=== PATIENT | female | born 1930 | race Caucasian/White ===

== ENCOUNTER 2016-10-28 16:49 | Emergency (ER) | payer MEDICARE ==
[~2016-10-28 16:49] MED LIST: ATENOLOL25 MG PO; ATIVAN PO; DILT-XR120 MG PO; ESCITALOPRAM OX10 MG PO; PRADAXA150 M1 PO; TEMAZEPAM7.5 MG PO; TIROSINT88 MCG PO; TRAZODONE HCL50 MG PO; TYLENOL ARTHRI650 MG PO; VITAMIN PO; XARELTO20 MG PO; ZOLPIDEM TARTRAT5 MG PO
--- NOTE | 2016-10-28 17:32 | DIAGNOSTIC IMAGING REPORT ---
PROCEDURE: CT HEAD WITHOUT CONTRAST INDICATION: Left weakness. TECHNIQUE: Noncontrast axial images with sagittal and coronal reformations. COMPARISON: Compared to a head CT studies on 01/25/2016 and 01/24/2016. FINDINGS: Status post left supraclinoid aneurysm coiling (metal artifact obscures some detail). 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 Brain and ventricles are otherwise normal. No evidence of an acute process or hemorrhage. There is a millimeter exostosis along the inner table of the left frontal bone (no change). There are small left maxillary sinus chronic retention cyst. Sinus and mastoids are otherwise normal. IMPRESSION: 1. Status post left supraclinoid aneurysm coiling (metal artifact). 2. Associated encephalomalacia of the left frontal lobe. 3. No change. No evidence of acute process head CT. 4. Findings discussed with Dr. Parag Van at [address] scans at this facility use dose modulation, iterative reconstruction, and/or weight-based dosing when appropriate to reduce radiation dose to as low as reasonably achievable.
--- NOTE | 2016-10-28 21:10 | DIAGNOSTIC IMAGING REPORT ---
PROCEDURE: CTA HEAD AND NECK INDICATION: Left weakness. TECHNIQUE: 168 ml of Isovue 370 injected intravenously and axial images were obtained from the vertex through the upper mediastinum with 3D sagittal and coronal MIP reconstructions. COMPARISON: Comparison is made to noncontrast head CT earlier today (10/28/2016). FINDINGS: AORTIC ARCH: Moderate calcified atheromatous changes aorta arch and origins of the great vessels without significant stenosis RIGHT CAROTID SYSTEM: Right common carotid artery is within normal limits. Mild calcified atheromatous changes of the right carotid bifurcation, no evidence of significant stenosis. Cervical right internal coronary is a markedly tortuous. LEFT CAROTID SYSTEM: Left common coronary is within normal limits. There are mild calcified atheromatous changes of the left bifurcation with mild narrowing of the origin of the left external carotid artery (30%). VERTEBROBASILAR SYSTEM: The origin of the vertebral arteries are markedly tortuous. The right vertebral artery is dominant and tortuous, but no evidence of significant stenosis. There is an 80% stenosis of the proximal left vertebral artery which is also tortuous. INTRACRANIAL ANTERIOR CIRCULATION: Right distal internal carotid artery, middle cerebral arteries, and intracerebral artery are normal. Left distal internal carotid artery is normal. There are aneurysm coils in the left supraclinoid region which obscures some of the with partial residual filling of the aneurysm. There appears be a small stent in the distal loss internal carotid artery which obscures some of the detail. Left middle and anterior cerebral arteries are normal. INTRACRANIAL POSTERIOR CIRCULATION: There is a dominant right and nondominant left vertebral arteries. There is 40% narrowing of the mid basilar artery with a 60% stenosis of the distal basilar artery. Distal basilar artery and posterior cerebral arteries are normal. IMPRESSION: Extracranial circulation: 1. Mild atheromatous plaque of the right common carotid artery bifurcation with tortuous distal right internal carotid artery. 2. Mild atheromatous plaque of the left common carotid artery bifurcation with 30% stenosis of the left external carotid artery. 3. There is an 80% stenosis in the origin of nondominant origin left vertebral artery. Intracranial circulation: 1. Normal right anterior circulation. 2. There are aneurysm coils in the left supraclinoid internal carotid artery with a small distal internal carotid stent with probable partial filling of aneurysm. 3. Otherwise normal left anterior circulation. 4. There is a 40% stenosis of the mid basilar artery with a 60% stenosis of the distal basilar artery. 5. Otherwise normal posterior circulation. All CT scans at this facility use dose modulation, iterative reconstruction, and/or weight-based dosing when appropriate to reduce radiation dose to as low as reasonably achievable.
--- NOTE | 2016-10-28 22:27 | ED ORDER SUMMARY ---
..... Patient: EDISON PINON OrderSheet [facility] VisitID: [id number] [place] [address] 86y, F Registration Date/Time: 10/28/2016 ORDER SHEET Weight: 78.4 kg (stated) Allergies: Codeine, Darvocet, Tape, Vytorin, Zocor GENERAL ORDERS: CT Head wo Cont Urgent (17:08 10/28/2016 Odette Martin) (Ack 17:16 LTapper) (17:22 Yecenia) Stroke Panel Stat (17:08 10/28/2016 Odette Martin) (Ack 17:16 LTapper) (17:57 Moriah Alvarado) CTA Head and Neck (No) (19/1.0) Urgent (18:41 10/28/2016 Odette Martin) (Ack 18:46 LTapper) (18:46 Odette aMrtin) (Cancelled: Physician Order18:47 Odette Martin) CTA Head and Neck (No) (19/1.0) Urgent (19:32 10/28/2016 AMcQuoid ER Tech1 verbal order read back to Odette Martin) (Ack 19:34 AMcQuoid ER Tech1) (20:04 Chino Hernandez.NAnnie) MEDICATION ORDERS: IV FLUIDS: ORDER SHEET NOTES: [Electronically signed by Hossein Campos R.N. (22:57 10/28/2016)] [Electronically signed by Parag Van Dr. (23:13 10/28/2016)] [Electronically locked/signed by Hossein Campos R.N. (22:57 10/28/2016)]
--- NOTE | 2016-10-28 22:27 | ED ORDER SUMMARY ---
..... Patient: EDISON PINON OrderSheet [facility] VisitID: [id number] [place] [address] 86y, F Registration Date/Time: 10/28/2016 ORDER SHEET Weight: 78.4 kg (stated) Allergies: Codeine, Darvocet, Tape, Vytorin, Zocor GENERAL ORDERS: CT Head wo Cont Urgent (17:08 10/28/2016 Odette Mratin) (Ack 17:16 LTapper) (17:22 Yecenia) Stroke Panel Stat (17:08 10/28/2016 Odette Martin) (Ack 17:16 LTapper) (17:57 Moriah Alvarado) CTA Head and Neck (No) (19/1.0) Urgent (18:41 10/28/2016 Odette Martin) (Ack 18:46 LTapper) (18:46 Odette Martin) (Cancelled: Physician Order18:47 Odette Martin) CTA Head and Neck (No) (19/1.0) Urgent (19:32 10/28/2016 AMcQuoid ER Tech1 verbal order read back to Odette Martin) (Ack 19:34 AMcQuoid ER Tech1) (20:04 Chino Hernandez.NAnnie) MEDICATION ORDERS: IV FLUIDS: ORDER SHEET NOTES: [Electronically signed by Hossein Campos R.N. (22:57 10/28/2016)] [Electronically signed by Parag Van Dr. (23:13 10/28/2016)] [Electronically locked/signed by Hossein Campos R.N. (22:57 10/28/2016)]
--- NOTE | 2016-10-28 22:27 | ED NURSING NOTES ---
Clinical Report - Nurses [place] [address] [place] [address] 10/28/2016 16:50 Patient: EDISON PINON TRIAGE Triage time 1649 PM. Chief Complaint: FALL while standing. Alert. No acute distress. --16:50 Hossein Campos R.N. 16:49 10/28/16. BP: 166/90. HR: 102. RR: 16. O2 saturation: 96% on room air. --16:50 Hossein Campos R.N. Alert. No acute distress. AUTUMN COMA SCORE: [place] Coma Scale: 15- eyes open spontaneously (4); best verbal response- oriented x 4 (5); best motor response- obeys commands (6). --16:51 Hossein Campos R.N. 16:50 10/28/16. BP: 169/104 taken on the right arm, while lying. --16:51 Hossein Campos R.N. 16:51 10/28/16. Temp: 97.8 F (oral). --16:52 Hossein Campos R.N. Weight: 78.4 kg stated. Height/Length: 63 inches Per Patient. BMI: 30.6. --17:14 Hossein Campos R.N. Medications Escitalopram Oxalate Oral 20 mg, daily. Metoprolol Tartrate Oral 25 mg. Nitrofurantoin Oral 100 mg. Tobramycin Ophthalmic. --16:52 Hossein Campos R.N. Sertraline HCl Oral. --16:53 Hossein Campos R.N. Pradaxa Oral. --17:01 Hossein Campos R.N. The following entry was struck by Hossein Campos R.N., 17:00 (10/28/16) Reason - wrong value. <<STRICKEN ENTRY-- Xarelto Oral. --16:52 Hossein Campos R.N. --END STRIKE>>. Allergies Codeine. Darvocet. Tape. Vytorin. Zocor. --16:52 Hossein Campos R.N. History This occurred just prior to arrival. --16:50 Hossein Campos R.N. The patient has had left leg pain (numbness). Treatment MEDICAL MANAGEMENT SPECIALIST: None. Trauma activation: Pre-hospital notification of patient arrival was received. --16:52 Hossein Campos R.N. PAST MEDICAL HX: Hypertension. Heart disease. Stroke. --16:54 Hossein Campos R.N. ( Patient presents to the ED with symptoms of a ground level fall and numbness to the left leg and arm. Patient states that she was trying to get off the couch. Patient's daughter tried to get patient up with her walker, but was unable to walk because of weakness/numbness in her left leg. Patient states that the numbness/weakness is new. Patient states that also was recently discharged from [facility] with similar symptoms +double vision/hypertension. Patient states that she has a hx of afib and has not been on her pradaxa for 1 week because [facility] wanted her PCP to monitor the pradaxa.). PAST MEDICAL HX: Hypertension. Heart disease. Stroke. SOCIAL HX: Never smoker. Alcohol use. (no). History of drug use. (no). No infectious disease exposure. FALL RISK ASSESSMENT: Fall risk assessment completed. Risk factors identified include patient age greater than 65 years, history of fall and impairment of mobility and sight. Fall interventions initiated. Side rails up x2. Brakes on Bed in low position. Patient visible from nurses' station and identified as a fall risk by ID band. Family at bedside. Call light in reach of patient. Instructed not to get up without assistance. --17:12 Hossein Campos R.N. NUTRITIONAL RISK ASSESSMENT: The nutritional risk assessment revealed no deficiencies. FUNCTIONAL ASSESSMENT: Functional assessment: no impairments noted. LEARNING NEEDS ASSESSMENT: The learning needs assessment revealed no barriers. SKIN INTEGRITY ASSESSMENT: Skin integrity risk assessment completed. No skin integrity risk identified. --17:13 Hossein Campos R.N. PROBLEMS: TIA - Transient Ischemic Attack. Hypothyroidism. Essential Hypertension. Hyperlipidemia. Vertigo. Sleep Apnea. Dyspnea. Chronic pancreatitis. C. Difficile Colitis. Agoraphobia. Hypertension. Hiatal Hernia. Pulmonary Nodule. LNMP - Last Normal Menstrual Period. Chest Pain. Diarrhea. UTI - Urinary Tract Infection. Hypokalemia. Hypotension. Depression. Atrial Fibrillation. Abdominal aortic aneurysm. --16:53 Hossein Campos R.N. ADDITIONAL SURGERIES: Appendectomy. Back Surgery. Brain surg, for aneurysm. Eeyes w/implants . Hysterectomy. --16:53 Hossein Campos R.N. PHYSICAL ASSESSMENT To room via stretcher. GENERAL / NEURO / PSYCH: Awake. Oriented X 4. Alert. Speech normal. Mood/affect normal. NIH Stroke Scale: score 5. Performed at 16:57 and 1656 PM. Level of Consciousness: alert (0). LOC Questions: both (0). LOC Commands: both (0). Best gaze: normal (0). Visual field loss: none (0). Facial palsy: minor (1). Motor arm: no drift right arm (0) and no drift left arm (0). Motor leg: no drift right leg (0) and drift left leg (1). Limb ataxia: one limb (1). Sensory loss: severe to total (2). Aphasia: none (0). Dysarthria: normal (0). Extinction and inattention: none (0). HEENT: Left-sided facial weakness. Pupils equal, round and reactive to light. Head non-tender. RESPIRATORY: Respirations not labored. Chest nontender. Breath sounds within normal limits. CVS: Normal heart rate and rhythm. Pulses within normal limits. Capillary refill less than 2 seconds. GI / : Abdomen soft and nontender. EXTREMITIES: Extremities exhibit normal ROM. Neuro-vascular status intact to the extremity. SKIN: Skin intact. Skin is warm and dry. --16:57 Hossein Campos R.N. EXTREMITIES: Left forearm. Left wrist. Left thigh. Left leg. --17:15 Hossein Campos R.N. GENERAL / NEURO / PSYCH: Alert. Oriented X 4 and 4. Awake. Alert. Appears in no acute distress. Speech normal. Mood/affect normal. No cerebellar findings. Moves all extremities equally. No motor deficit. No sensory deficit. NIH Stroke Scale: score 2. Level of Consciousness: alert (0). LOC Questions: both (0). LOC Commands: both (0). Best gaze: normal (0). Visual field loss: none (0). Facial palsy: normal (0). Motor arm: no drift right arm (0) and no drift left arm (0). Motor leg: no drift right leg (0) and drift left leg (1). Limb ataxia: none (0). Sensory loss: mild to moderate (1). Aphasia: none (0). Dysarthria: normal (0). Extinction and inattention: none (0). --21:18 Hossein Campos R.N. GENERAL / NEURO / PSYCH: NIH Stroke Scale: score 0. Level of Consciousness: alert (0). LOC Questions: both (0). LOC Commands: both (0). Best gaze: normal (0). Visual field loss: none (0). Facial palsy: normal (0). Motor arm: no drift right arm (0) and no drift left arm (0). Motor leg: no drift right leg (0) and no drift left leg (0). Limb ataxia: none (0). Sensory loss: none (0). Aphasia: none (0). Dysarthria: normal (0). Extinction and inattention: none (0). --22:16 Hossein Campos R.N. NURSING PROGRESS NOTES 17:03 10/28/2016 Site #1 started via IV in the left antecubital space with an 20g angiocath; one attempt. Blood drawn: rainbow set. Labeled in the presence of the patient and sent to the lab. Saline lock flushed with 10 mL saline. --17:03 Hossein Campos R.N. Patient hygiene performed. Changed patient linens. Assisted patient with bedpan; tolerated well. Patient transported to CT by stretcher with tech. --19:46 Chris Rodriguez R.N. Patient returned from CT by stretcher with tech. (20:07 Oct 28 2016). --20:07 Preethi Patricia ( Assisted patient patient on the bed menendez.). --21:07 Hossein Campos R.NAnnie 20:40 10/28/16. BP: 182/109. HR: 87. RR: 18. O2 saturation: 100%. Pain level now: 0/10. --21:08 Hossein Campos R.NAnnie 20:25 10/28/16. BP: 177/110. HR: 91. RR: 18. O2 saturation: 100%. --21:08 Hossein Campos R.NAnnie 19:55 10/28/16. BP: 187/117. HR: 95. RR: 18. O2 saturation: 100%. --21:09 Hossein Campos R.NAnnie 19:15 10/28/16. BP: 164/104. HR: 91. RR: 18. O2 saturation: 100%. --21:10 Hossein Campos R.N. 18:45 10/28/16. BP: 170/99. HR: 91. RR: 16. O2 saturation: 99%. --21:11 Hossein Campos R.NAnnie 17:40 10/28/16. BP: 166/92. HR: 97. RR: 18. O2 saturation: 96%. --21:12 Hossein Campos R.NAnnie 17:00 10/28/16. BP: 163/112. HR: 91. RR: 18. O2 saturation: 99%. --21:13 Hossein Campos R.N. GENERAL / NEURO / PSYCH: Alert. Oriented X 4. RESPIRATORY: No respiratory distress. CVS: Capillary refill less than 2 seconds. GI / : Abdomen nontender. EXTREMITIES: Neuro-vascular status intact to the extremity. --21:17 Hossein Campos R.N. 21:16 10/28/16. BP: 165/107. HR: 85. RR: 18. O2 saturation: 100%. --21:17 Hossein Campos R.N. ( Provided patient with a turkey sandwich, Jell-O, and a glass of ice water.). --22:05 Hossein Campos R.N. ( Patient ambulates around the emergency department with and even and steady gait with the assistance of a walker. Physician aware.). --22:15 Hossein Campos R.N. The patient reports no complaints and she is calm and resting quietly. Overall patient status is improved. GENERAL / NEURO / PSYCH: Alert. Oriented X 4. RESPIRATORY: No respiratory distress. CVS: Capillary refill less than 2 seconds. GI / : Abdomen nontender. EXTREMITIES: Neuro-vascular status intact to the extremity. --22:16 Hossein Campos R.N. DISPOSITION / DISCHARGE Condition at departure: improved. The goals identified in the patient's plan of care were met. No learning barriers present. Discharge instructions provided and reviewed with the patient. Reviewed medication(s) (Instructed patient to take her prescribed Metoprolol tonight). Patient verbalized understanding. Written instructions provided in Fijian. The patient was discharged home and accompanied by family. She left the Emergency Department ambulatory and via private vehicle. Family member driving. FALL RISK ASSESSMENT: Fall risk assessment completed. No fall risk identified. --22:56 Hossein Campos R.N. 22:55 10/28/16. BP: 184/139. HR: 85. RR: 16. O2 saturation: 100% on room air. Temp: 98.2 F (oral). --22:56 Hossein Campos R.N. 22:56 10/28/2016 Site #1 removed upon discharge. Pressure dressing applied. --22:56 Hossein Campos R.N. Departure time: 2256 PM. --22:56 Hossein Campos R.N. Locked/Released at 10/28/2016 22:57 by Hossein Campos R.N.
--- NOTE | 2016-10-28 22:27 | ED CLINICAL REPORT ---
Clinical Report - Physicians/Mid Levels [facility] [address] [place] [address] 10/28/2016 16:50 [id number] Time Seen: 16:56; initial patient contact. Arrived- By ambulance. Historian- patient and EMS personnel. HISTORY OF PRESENT ILLNESS Chief Complaint: WEAKNESS and PARESTHESIA. The patient has had new onset of constant weakness of the left arm (mild), left hand (mild), left leg (mild) and left foot (mild). She has had new onset of constant numbness of the left arm (moderate), left leg (moderate) and left foot (moderate), (L upper arm/shoulder spared). No tingling or impaired speech. She has had visual disturbance (Ongoing L eye). She has had difficulty walking. She has had a recent fall. This started just prior to arrival, patient was witnessed to be last known well (at 1500) and is still present. It was abrupt in onset. At its maximum deficit described as moderate. When seen in the E.D.,deficit described as moderate. No dizziness, altered mental status, seizure or blackouts. Usually is alert and oriented X3 and has normal mobility. Similar symptoms previously: None. Recent medical care: Not recently seen/assessed. REVIEW OF SYSTEMS All systems otherwise negative, except as recorded above. PAST HISTORY ( TIA - Transient Ischemic Attack. Hypothyroidism. Essential Hypertension. Hyperlipidemia. Vertigo. Sleep Apnea. Dyspnea. Chronic pancreatitis. C. Difficile Colitis. Agoraphobia. Hypertension. Hiatal Hernia. Pulmonary Nodule. LNMP - Last Normal Menstrual Period. Chest Pain. Diarrhea. UTI - Urinary Tract Infection. Hypokalemia. Hypotension. Depression. Atrial Fibrillation. Abdominal aortic aneurysm. ADDITIONAL SURGERIES: Appendectomy. Back Surgery. Brain surg, for aneurysm. Eeyes w/implants . Hysterectomy.). Medications: Sertraline HCl Oral. Escitalopram Oxalate Oral 20 mg, daily. Metoprolol Tartrate Oral 25 mg. Nitrofurantoin Oral 100 mg. Tobramycin Ophthalmic. Allergies: Codeine. Darvocet. Tape. Vytorin. Zocor. SOCIAL HISTORY Never smoker. No alcohol use or drug use. ADDITIONAL NOTES The nursing notes have been reviewed with agreement regarding the chief complaint, PMH and patient medications and allergies. PHYSICAL EXAM Vital Signs: 10/28/2016 16:51 Temp: 97.8 F. 10/28/2016 16:49 BP: 166/90. HR: 102. RR: 16. O2 saturation: 96%. Have been reviewed. Hypertensive. Tachycardic. Respiratory rate normal. Temperature normal. Oxygen saturation normal. Appearance: Alert. No acute distress. Head: Head atraumatic. Eyes: Pupils equal, round and reactive to light. ENT: Normal ENT inspection. Airway intact. Pharynx normal. Neck: Normal inspection. Neck supple. CVS: Abnormal rhythm, which is irregularly irregular. Normal heart rate and rhythm. Heart sounds normal. Respiratory: No respiratory distress. Breath sounds normal. Abdomen: Soft and nontender. No organomegaly. Skin: Skin warm and dry. Normal skin color. Extremities: No lower extremity edema. Neuro: Alert. Oriented X 3. Mood/affect normal. Speech normal. Cranial nerves normal (as tested). Finger-nose test moderately abnormal on the left. No motor deficit. Sensory deficit present. Altered sensation to light touch on the left arm and left leg. Reflexes normal. No pronator drift. LABS, X-RAYS, AND EKG EKG: EKG time: (1708). Atrial fibrillation (ventricular rate 79). Normal QRS complex. Normal axis. Normal ST and T waves, QT and QTc. Prior EKG unavailable. The study has been interpreted contemporaneously by me. The study has been independently viewed by me. The EKG appears to be a good tracing. Interpretation time: 1708. CTA Head: Extracranial circulation: 1. Mild atheromatous plaque of the right common carotid artery bifurcation with tortuous distal right internal carotid artery. 2. Mild atheromatous plaque of the left common carotid artery bifurcation with 30% stenosis of the left external carotid artery. 3. There is an 80% stenosis in the origin of nondominant origin left vertebral artery. Intracranial circulation: 1. Normal right anterior circulation. 2. There are aneurysm coils in the left supraclinoid internal carotid artery with a small distal internal carotid stent with probable partial filling of aneurysm. 3. Otherwise normal left anterior circulation. 4. There is a 40% stenosis of the mid basilar artery with a 60% stenosis of the distal basilar artery. 5. Otherwise normal posterior circulation. Head CTA performed with contrast. Artifact present. The study was interpreted by the radiologist and discussed with the radiologist. Interpretation time: 2108. CT Head: (1. Status post left supraclinoid aneurysm coiling (metal artifact). 2. Associated encephalomalacia of the left frontal lobe. 3. No change. No evidence of acute process head CT.). Head CT performed without contrast. Prior studies were not available for comparison. The study was interpreted by the radiologist and discussed with the radiologist. Interpretation time: 1729. Laboratory Tests: CBC w Diff: (CABRERA: 10/28/2016 17:00) ( [facility] Final results Test Result Flag Units (Reference) WHITE BLOOD COUNT 12.9 H K/uL (4.5-11.5) RED BLOOD COUNT 5.01 M/uL (4.00-5.20) HEMOGLOBIN 14.3 gm/dL (12.0-16.0) HEMATOCRIT 44.8 % (36.0-46.0) MEAN CELL VOLUME 90 fL (80-100) MEAN CORPUSCULAR HGB 29 pg (26-34) MEAN CORPUSCULAR HGB CONC 32 g/dL (31-37) RED CELL DISTRIBUTION WIDTH 15.0 H % (11.6-14.8) PLATELET COUNT 155 K/uL (150-400) LYMPH % 11.7 L % (25-40) MONO % 6.6 % (3-14) GRANULOCYTE % 81.7 (53-90) PT with INR: (CABRERA: 10/28/2016 17:00) ( MsgRcvd 10/28/2016 17:41) Final results Test Result Flag Units (Reference) INR 1.0 (0.8-1.2) Low Intensity Therapy: INR 1.5-2.0 PT range 18.5-23.1Mod.Intensity Therapy: INR 2.0-3.0 PT range 23.1-31.5High Intensity Therapy: INR 2.5-3.5 PT range 27.4-35.5High Intensity Therapy 2: INR 3.0-4.0 PT range 31.5-39.3 APTT 27 SECONDS (24-34) FIBRINOGEN 270 mg/dL (193-455) D-DIMER QUANTITATIVE 12.71 *H ug/mLFEU (0.27-0.52) CRITICAL RESULTS CALLEDCalled to MIGUEL A 10/28/16 1740Were 2 patient identifiers used? YWas the result read back? YThe primary value of this quantitative assay relates toits negative predictive value (i.e. exclusion) of pulmonaryembolism/deep vein thrombosis/DIC.Elevated levels of d-dimer may also occur with:, age, cancer, inflammation, liver disease,post-op, infection, hematoma, coronary disease, peripheralarteriopathy, bleeding disorders and thrombolytic treatment.Results should be correlated with other clinical andradiological data.Testing Methodology: Latex Immunoassay CMP: (CABRERA: 10/28/2016 17:00) ( MsgRcvd 10/28/2016 17:30) Final results Test Result Flag Units (Reference) GLUCOSE 117 H mg/dL (70-110) BUN 19 H mg/dL (7-18) CREATININE 1.0 mg/dL (0.6-1.3) Estimated GFR 55.61 mL/min Estimated GFR- >60 mL/min Note: Persistent reduction over 3 months in eGFR<60 mL/min/1.73 m2 defines CKD. Patients with eGFR values>=60 mL/min/1.73 m2 may also have CKD if evidence ofpersistent proteinuria. Additional information may be foundat www.[email or web address].org. SODIUM 140 mmol/L (136-145) POTASSIUM 3.7 mmol/L (3.5-5.1) CHLORIDE 104 mmol/L (98-107) CARBON DIOXIDE 26 mmol/L (21-32) CALCIUM 8.2 L mg/dL (8.5-10.1) TOTAL PROTEIN 7.5 g/dL (6.4-8.2) ALBUMIN 3.2 L g/dL (3.3-5.0) BILIRUBIN, TOTAL 0.4 mg/dL (0.0-1.0) ALKALINE PHOSPHATASE 78 U/L (46-116) AST (SGOT) 27 U/L (15-37) ALT (SGPT) 26 U/L (12-78) . PROGRESS AND PROCEDURES Call placed to on-call health care provider call returned 22:00 Dr. Samaniego neuro, no new findings on CTA, recommended D/C on ASA and F/U. Consult obtained from neurology. call returned 18:37 Dr. Samaniego @ [facility], recommended CTA of head/neck due to not being able to perform MRI due to aneurysm clip. Disposition: Discharged home in good and improved condition. Condition: good. CLINICAL IMPRESSION Paresthesia Chronic atrial fibrillation. The patient has one or more high risk factors and/or two or more moderate risk factors for thromboembolism. The patient is not prescribed warfarin or another FDA approved anticoagulant because the bleeding risk outweighs the benefits. INSTRUCTIONS Your Current Medications: CONTINUE TAKING THE FOLLOWING MEDICATIONS: Escitalopram Oxalate Oral : 20 mg daily. Metoprolol Tartrate Oral : 25 mg. Nitrofurantoin Oral : 100 mg. Sertraline HCl Oral. Tobramycin Ophthalmic. Follow-up: Follow up with your doctor Saturday as scheduled. Blood pressure screening was not performed during this visit because the patient has an active diagnosis of hypertension. (Electronically signed by Parag Van Dr. 10/28/2016 23:13)
--- NOTE | 2016-10-28 23:14 | ED MAR SUMMARY ---
..... Medication Administration Record [facility] [address] [place], [place] [id number] Patient: EDISON PINON Visit ID: [id number] 86y, F Weight: 78.4 kg Height/Length: 63 in BMI: 30.6 ALLERGIES: Codeine, Darvocet, Tape, Vytorin, Zocor
--- NOTE | 2016-10-28 23:14 | ED MED RECONCILIATION SUMMARY ---
Patient: EDISON PINON Medication Reconciliation Report [facility] VisitID: [id number] [address] [place] [address] 86y, F Registration Date/Time: 10/28/2016 Weight: 78.4 kg Height/Length: 63 in. BMI: 30.6 ALLERGIES: Codeine, Darvocet, Tape, Vytorin, Zocor The patient's Home Medications are listed below: CONTINUE TAKING THE FOLLOWING MEDICATIONS: Escitalopram Oxalate Oral 20 mg, daily Metoprolol Tartrate Oral 25 mg Nitrofurantoin Oral 100 mg Sertraline HCl Oral Tobramycin Ophthalmic The source(s) of the original Home Medication information: Not obtained. The following Medications were given to the patient in the Emergency Department: None. The following Medications were prescribed to the patient: None.
--- NOTE | 2016-10-28 23:14 | ED MED RECONCILIATION SUMMARY ---
Patient: EDISON PINON Medication Reconciliation Report [facility] VisitID: [id number] [address] [place] [address] 86y, F Registration Date/Time: 10/28/2016 Weight: 78.4 kg Height/Length: 63 in. BMI: 30.6 ALLERGIES: Codeine, Darvocet, Tape, Vytorin, Zocor The patient's Home Medications are listed below: CONTINUE TAKING THE FOLLOWING MEDICATIONS: Escitalopram Oxalate Oral 20 mg, daily Metoprolol Tartrate Oral 25 mg Nitrofurantoin Oral 100 mg Sertraline HCl Oral Tobramycin Ophthalmic The source(s) of the original Home Medication information: Not obtained. The following Medications were given to the patient in the Emergency Department: None. The following Medications were prescribed to the patient: None.
--- NOTE | 2016-10-28 23:14 | ED DISCHARGE INSTRUCTIONS ---
Patient: EDISON PINON General Instructions [facility] VisitID: [id number] [place] [address] 86y, F Registration Date/Time: 10/28/2016 Paresthesia Chronic atrial fibrillation. The patient has one or more high risk factors and/or two or more moderate risk factors for thromboembolism. The patient is not prescribed warfarin or another FDA approved anticoagulant because the bleeding risk outweighs the benefits. INSTRUCTIONS Your Current Medications: CONTINUE TAKING THE FOLLOWING MEDICATIONS: Escitalopram Oxalate Oral : 20 mg daily. Metoprolol Tartrate Oral : 25 mg. Nitrofurantoin Oral : 100 mg. Sertraline HCl Oral. Tobramycin Ophthalmic. Follow-up: Follow up with your doctor Saturday as scheduled. Blood pressure screening was not performed during this visit because the patient has an active diagnosis of hypertension. ADDITIONAL INFORMATION Arrhythmia Electrical impulses cause the normal heart to beat 60 to 100 times a minute. These impulses come from a natural pacemaker deep inside the heart muscle. Each impulse causes the heart muscle to contract. This causes the blood to flow through the heart and out to the tissues and organs of your body. An arrhythmia is a change from the normal speed or pattern of these electrical impulses. This can cause the heart to beat too fast (tachycardia); or too slow (bradycardia); or in an unsteady pattern (irregular rhythm). Symptoms of arrhythmias Different people experience arrhythmias differently. Sometimes they may not have symptoms, but just notice a change in their pulse. Symptoms can include: Fluttering feeling in the chest Shortness of breath Chest pain or pressure Lightheadedness or dizziness Fainting or nearly fainting Palpitations Tiredness, fatigue, or weakness Causes of arrhythmias Arrhythmias are most often due to heart disease such as: Coronary artery disease (arteriosclerosis) Disease of the heart valves Enlarged heart High blood pressure Heart failure Other causes ofarrhythmia include: Certain medicines (such as asthma inhalers and decongestants) Some herbal supplements Cardiac stimulant drugs (such as cocaine, amphetamine, diet pills, certain decongestant cold medicines, caffeine, and nicotine) Excessive alcohol use Medical conditions such as thyroid disease, anemia, anxiety, and panic disorder Arrythmias can often be prevented. The cause and type of arrhythmia determines the best treatment. Sometimes your doctor may want to monitor your heart rate over a 24-hour period or longer. This can help identify the cause of your arrhythmia and find the best treatment. This can be done with a Holter monitor,a portable EKG recording device attached by wires to your chest. You can carry this with you as you perform your routine activities during the monitoring period. Home care Avoid cardiac stimulants (such as cocaine, amphetamine, diet pills, certain decongestant cold medicines, caffeine, and nicotine). If you smoke, stop smoking. Contact your doctor or a local stop-smoking program for help. Tell your doctor about any prescription, [id number] or herbal medicines you take. These may be affecting your heart rhythm. Follow-up care Follow up with your health care provider or as advised by our staff. If a Holter monitor has been recommended, contact the cardiologistyou have been referred toas soon as you canpick up the device. Other outpatient tests may also be arranged for you at that time. Call 911 This is the fastest and safest way to get to the emergency department. The paramedics can also start treatment on the way to the hospital, if needed. Don'twait until your symptoms are severe to call 911. Other reasons to call 911 besides chest pain include: Chest, shoulder, arm, neck, or back pain Shortness of breath Feeling lightheaded, faint, or dizzy Rapid heart beat Slower than usual heart rate compared to your normal Angina withweakness, dizziness, fainting, heavy sweating, nausea, or vomiting Extreme drowsiness, or confusion Weakness of an arm or leg or one side of the face Difficulty with speech or vision When to seek medical care Remember, things are not always like they are on TV. Sometimes it is not so obvious. You may only feel weak or just "not right." If it is not clear or if you have any doubt, call for advice. Seek help for chest pain, or it feels different from usual, even if your symptoms are mild. Do not drive yourself. Have someone else drive. If no one can drive you, call 911. If your doctor has given you medicines to take when you have symptoms, take them, but do not delay getting help while trying to find them. Do not delay. Fast diagnosis and treatment can prevent or limit the amount of heart damage during a heart attack or stroke. Do not go to your doctor's ofice or a clinic because they will not be able to provide all of the testing or treatment required for this condition. Paraesthesias Paraesthesia refers to a burning or prickling sensation that is sometimes felt in the hands, arms, legs or feet. It can also occur in other parts of the body. It can also feel like tingling or numbness, skin crawling or itching.The sensation is usually painless. Most people have experienced pins and needles. This feeling happens when legs have been crossed for too long and pressure is placed on a nerve. This is a temporary paraesthesia. It quickly goes away once the pressure is relieved. There are many possible causes for chronic paraesthesias. These include such disorders as stroke, herniated disk (pressing on a nerve), trapped nerve in the shoulder, elbow or wrist (such as carpal tunnel syndrome), vitamin deficiencies or even certain medicines. Laboratory tests are needed to make an accurate diagnosis. These tests may include blood tests, X-ray, CT (computerized tomography) scan or a muscle test (electromyography).Depending on the cause, treatment may include physical therapy. Home Care: Do not make any changes to your medicines without advice from your doctor. If vitamins have been prescribed, remember to take them daily at the recommended dose. Because of a decrease in feeling, a numb hand or foot may be more prone to injury. Take care to protect these areas from cuts, bumps, bruises, coffey or other injury. Keep your nails trimmed and wash your hands and feet often. Wear shoes that fit well to avoid pressure points, blisters and ulcers. Look at your hands and feet carefully (including the soles of your feet and between your toes) at least once a week and notify your doctor of any open wounds or signs of infection. Follow Up with your doctor or as advised by our staff. You may need further testing to determine the exact cause of your paraesthesia. [NOTE: If blood tests, X-ray, CT scan or electromyography were done, specialists will review them. You will be notified of any new findings that may affect your care.] Get Prompt Medical Attention if any of the following occur: Numbness or weakness of the face, one arm or one leg Slurred speech, confusion, trouble speaking, walking or seeing Severe headache, fainting spell, dizziness or seizure Chest, arm, neck or upper back pain Loss of bladder or bowel control Open wound with redness, swelling or pus You have been given the following additional information: Arrhythmia, Unspecified Paraesthesias (Electronically signed by Parag Van Dr. 10/28/2016 23:13)
--- NOTE | 2016-10-28 23:14 | ED MAR SUMMARY ---
..... Medication Administration Record [facility] [address] [place], [place] [id number] Patient: EDISON PINON Visit ID: [id number] 86y, F Weight: 78.4 kg Height/Length: 63 in BMI: 30.6 ALLERGIES: Codeine, Darvocet, Tape, Vytorin, Zocor
== END 2016-10-28 22:56 | disposition home or self-care (01) ==
LOC: ED SRH 16:49
DX: I48.2 Chronic atrial fibrillation (principal); R20.9 Unspecified disturbances of skin sensation; I10 Essential (primary) hypertension; Z86.73 Personal history of transient ischemic attack (TIA), and cerebral infarction without residual deficits; Z79.2 Long term (current) use of antibiotics; Z88.5 Allergy status to narcotic agent; Z91.048 Other nonmedicinal substance allergy status
CPT/HCPCS: 90100; 91556; 94001; 94050; 94060; 95059

== ENCOUNTER 2016-11-12 06:05 | Emergency (ER) | payer MEDICARE ==
--- NOTE | 2016-11-12 07:18 | DIAGNOSTIC IMAGING REPORT ---
PROCEDURE: CT HEAD WITHOUT CONTRAST INDICATION: Fall injury, initial encounter TECHNIQUE: Noncontrast axial images with sagittal and coronal reformations. COMPARISON: None. FINDINGS: Mild cortical atrophy and white matter chronic ischemic changes. Normal ventricular system. Left MCA aneurysm coil. No evidence of acute intracranial process. Left maxillary sinus polyps. Mastoid are clear. IMPRESSION: 1. Negative non-enhanced head CT. 2. Findings discussed with Dr. Van at 07:[address] Time
--- NOTE | 2016-11-12 07:18 | DIAGNOSTIC IMAGING REPORT ---
PROCEDURE: CT HEAD WITHOUT CONTRAST INDICATION: Fall injury, initial encounter TECHNIQUE: Noncontrast axial images with sagittal and coronal reformations. COMPARISON: None. FINDINGS: Mild cortical atrophy and white matter chronic ischemic changes. Normal ventricular system. Left MCA aneurysm coil. No evidence of acute intracranial process. Left maxillary sinus polyps. Mastoid are clear. IMPRESSION: 1. Negative non-enhanced head CT. 2. Findings discussed with Dr. Van at 07:17 a.m.[facility] Time
--- NOTE | 2016-11-12 08:18 | DIAGNOSTIC IMAGING REPORT ---
PROCEDURE: XR CHEST 1 VIEW INDICATION: SHORTNESS OF BREATH, initial encounter TECHNIQUE: Portable AP view 06:53 a.m. COMPARISON: None. FINDINGS: Lungs are clear. Mild to moderate cardiomegaly. Mediastinum and pulmonary vessels are normal. Tortuous aorta. Thorax is normal. IMPRESSION: 1. Mild to moderate cardiomegaly
--- NOTE | 2016-11-12 09:47 | DIAGNOSTIC IMAGING REPORT ---
PROCEDURE: CTA THORAX WITH CONTRAST INDICATION: SHORTNESS OF BREATH, initial encounter TECHNIQUE: 104 ml of Isovue 370 was injected intravenously and axial images were obtained of the entire thorax with 3D sagittal and coronal MIP reconstructions. COMPARISON: Chest x-ray 11/12/2016 FINDINGS: No evidence of pulmonary emboli. Mild atherosclerosis of the thoracic aorta without dissection or aneurysm. Moderate cardiomegaly. Ground- glass appearance in the lung bases which may represent pulmonary edema. Small left pleural effusion. No adenopathy. NG tube in place, moderate hiatal hernia. Moderate degenerative changes of the spine. IMPRESSION: 1. No evidence of pulmonary emboli, aortic dissection or aneurysm 2. Ground-glass appearance of the lung bases which may represent pulmonary edema 3. Cardiomegaly with small left pleural effusion 4. Results discussed with Dr. Van
--- NOTE | 2016-11-12 09:47 | DIAGNOSTIC IMAGING REPORT ---
PROCEDURE: CT ABD/PELVIS WITH CONTRAST CLINICAL INDICATION: ABDOMINAL PAIN, initial encounter TECHNIQUE: 104 ml of Isovue 370 were injected intravenously and axial images were obtained of the entire abdomen and pelvis with sagittal and coronal reformations. COMPARISON: None. FINDINGS: ABDOMEN: 5.6 cm infrarenal abdominal aortic aneurysm with large acute rupture posteriorly and extensive retroperitoneal soft tissue density consistent with hemorrhage. Compression of the IVC and bilateral renal veins. 1.7 cm left hepatic lobe cyst. Cholelithiasis. 3.4 x 4.1 cm multiloculated cystic mass in the body of the pancreas and 2.8 x 3.0 cm multiloculated mass in the tail of the pancreas. Spleen and adrenal glands are unremarkable. Multiple small bilateral renal cysts. NG tube in place. Moderate hiatal hernia. Nonspecific bowel gas pattern. Moderate degenerative changes of the spine. PELVIS: Mild sigmoid diverticulosis. Hysterectomy. Healy catheter in the bladder. No free fluid the cul-de-sac. 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 Small amount of retroperitoneal hemorrhage. No suspicious osseous lesions. IMPRESSION: 1. 5.6 cm infrarenal abdominal aortic leaking aneurysm with large retroperitoneal hemorrhage 2. Secondary compression of the IVC and bilateral renal veins 3. Cholelithiasis 4. 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 Moderate hiatal hernia with NG tube in place 6. Results discussed with Dr. Van All CT scans at this facility use dose modulation, iterative reconstruction, and/or weight-based dosing when appropriate to reduce radiation dose to as low as reasonably achievable.
--- NOTE | 2016-11-12 10:05 | ED CLINICAL REPORT ---
Clinical Report - Physicians/Mid Levels [facility] [address] [place] [address] 11/12/2016 6:06 [id number] Time Seen: 06:17; initial patient contact. Arrived- By ambulance. Historian- EMS personnel. HISTORY OF PRESENT ILLNESS Chief Complaint: FALL. Location of injuries- abdomen. The injury occurred just prior to arrival. Fell while standing and landed on the ground. Occurred at home. The patient complains of moderate pain in the abdomen. REVIEW OF SYSTEMS No chest pain or fever. She has had difficulty breathing, nausea, abdominal pain and vomiting. All systems otherwise negative, except as recorded above. PAST HISTORY ( TIA - Transient Ischemic Attack. Hypothyroidism. Essential Hypertension. Hyperlipidemia. Vertigo. Sleep Apnea. Dyspnea. Chronic pancreatitis. C. Difficile Colitis. Agoraphobia. Hypertension. Hiatal Hernia. Pulmonary Nodule. LNMP - Last Normal Menstrual Period. Chest Pain. Diarrhea. UTI - Urinary Tract Infection. Hypokalemia. Hypotension. Depression. Atrial Fibrillation. Abdominal aortic aneurysm. ADDITIONAL SURGERIES: Appendectomy. Back Surgery. Brain surg, for aneurysm. Eeyes w/implants . Hysterectomy.). Medications: Antidepressant. Synthroid Oral. PredniSONE Oral. TraZODone HCl Oral. Pradaxa Oral. Allergies: Codeine. Darvocet. Ezetimibe. Tape. SOCIAL HISTORY Never smoker. No alcohol use or drug use. ADDITIONAL NOTES The nursing notes have been reviewed with agreement regarding the chief complaint, PMH and patient medications and allergies. PHYSICAL EXAM Vital Signs: 11/12/2016 06:13 Temp: 95.8 F. 11/12/2016 06:07 BP: 103/71. HR: 145. RR: 32. Have been reviewed. Hypotensive. Tachycardic. Tachypneic. Hypothermic. Appearance: C-collar in place. Lethargic. Patient in moderate distress. Head: No swelling of head. No Basilio's sign or raccoon eyes. Eyes: Pupils equal, round and reactive to light. EOM intact. ENT: No dental injury. Neck: No pain with movement of head/neck. No muscle spasm in the neck. Painless ROM. Non-tender. Non-tender. Non-tender. No vertebral tenderness. CVS: Tachycardia. Abnormal rhythm, which is irregularly irregular. Respiratory: Mild respiratory distress with tachypnea. Breath sounds normal. Abdomen: No visible injury. Soft. Moderate tenderness in the left side of the abdomen with guarding present. No rebound tenderness. Abnormal bowel sounds: hyperactive and high pitched. Moderate, pulsatile mass with guarding present in the left abdomen. Skin: Moderately cool skin. No skin rash. Extremities: Extremities atraumatic. Neuro: Altered mental status. Eyes open to voice. Best verbal response: disoriented. Best motor response: obeys commands. LABS, X-RAYS, AND EKG Chest X-ray: (1. Mild to moderate cardiomegaly). Views: AP. Technique: good. The X-rays were independently viewed by me, interpreted by the radiologist and contemporaneously by me and discussed with the radiologist. Prior films were not available for comparison. Chest CT: (1. No evidence of pulmonary emboli, aortic dissection or aneurysm 2. Ground-glass appearance of the lung bases which may represent pulmonary edema 3. Cardiomegaly with small left pleural effusion). Chest CT performed with contrast. Prior studies were not available for comparison. The study was interpreted by the radiologist and discussed with the radiologist. CT Abdomen: 1. 5.6 cm infrarenal abdominal aortic leaking aneurysm with large retroperitoneal hemorrhage 2. Secondary compression of the IVC and bilateral renal veins 3. Cholelithiasis 4. 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 Moderate hiatal hernia with NG tube in place. Study type: upper abdomen; lower abdomen; pelvis. Abdominal CT performed with IV contrast. Prior studies were not available for comparison. The study was interpreted by the radiologist and discussed with the radiologist. Laboratory Tests: CBC w Diff: (CABRERA: 11/12/2016 06:15) ( MsgRcvd 11/12/2016 06:32) Final results Test Result Flag Units (Reference) WHITE BLOOD COUNT 19.1 H K/uL (4.5-11.5) RED BLOOD COUNT 4.58 M/uL (4.00-5.20) HEMOGLOBIN 13.7 gm/dL (12.0-16.0) HEMATOCRIT 41.8 % (36.0-46.0) MEAN CELL VOLUME 91 fL (80-100) MEAN CORPUSCULAR HGB 30 pg (26-34) MEAN CORPUSCULAR HGB CONC 33 g/dL (31-37) RED CELL DISTRIBUTION WIDTH 16.7 H % (11.6-14.8) PLATELET COUNT 128 L K/uL (150-400) NEUTROPHIL % 76.9 H % (50-75) LYMPH % 17.4 L % (25-40) MONO % 3.7 % (3-14) EOSINOPHIL % 1.2 % (0-4) BASOPHIL % 0.8 % (0-2) PT with INR: (CABRERA: 11/12/2016 06:45) ( [facility] 11/12/2016 07:17) Final results Test Result Flag Units (Reference) INR 1.0 (0.8-1.2) Low Intensity Therapy: INR 1.5-2.0 PT range 18.5-23.1Mod.Intensity Therapy: INR 2.0-3.0 PT range 23.1-31.5High Intensity Therapy: INR 2.5-3.5 PT range 27.4-35.5High Intensity Therapy 2: INR 3.0-4.0 PT range 31.5-39.3 APTT 27 SECONDS (24-34) [id number]: (CABRERA: 11/12/2016 06:15) ( [facility] [place] 11/12/[place] 07:03) Final results Test Result Flag Units (Reference) D-DIMER QUANTITATIVE 9.22 *H ug/mLFEU (0.27-0.52) CRITICAL RESULTS CALLEDCalled to GABRIEL 11/12/16 0702Were 2 patient identifiers used? YWas the result read back? YThe primary value of this quantitative assay relates toits negative predictive value (i.e. exclusion) of pulmonaryembolism/deep vein thrombosis/DIC.Elevated levels of d-dimer may also occur with:, age, cancer, inflammation, liver disease,post-op, infection, hematoma, coronary disease, peripheralarteriopathy, bleeding disorders and thrombolytic treatment.Results should be correlated with other clinical andradiological data.Testing Methodology: Latex Immunoassay BNP: (CABRERA: 11/12/2016 06:15) ( MsgRcvd 11/12/2016 06:40) Final results Test Result Flag Units (Reference) B-TYPE NATRIURETIC PEPTIDE 390 H pg/ml (5-100) CHEM 13 PANEL: (CABRERA: 11/12/2016 06:15) ( MsgRcvd 11/12/2016 06:52) Final results Test Result Flag Units (Reference) GLUCOSE 309 H mg/dL (70-110) BUN 27 H mg/dL (7-18) CREATININE 1.3 mg/dL (0.6-1.3) Estimated GFR 41.09 mL/min Estimated GFR- 49.80 mL/min Note: Persistent reduction over 3 months in eGFR<60 mL/min/1.73 m2 defines CKD. Patients with eGFR values>=60 mL/min/1.73 m2 may also have CKD if evidence ofpersistent proteinuria. Additional information may be foundat www.kidney.org. SODIUM 144 mmol/L (136-145) POTASSIUM 3.9 mmol/L (3.5-5.1) CHLORIDE 106 mmol/L (98-107) CARBON DIOXIDE 24 mmol/L (21-32) CALCIUM 8.0 L mg/dL (8.5-10.1) TOTAL PROTEIN 6.3 L g/dL (6.4-8.2) ALBUMIN 2.5 L g/dL (3.3-5.0) BILIRUBIN, TOTAL 0.5 mg/dL (0.0-1.0) ALKALINE PHOSPHATASE 62 U/L (46-116) AST (SGOT) 37 U/L (15-37) ALT (SGPT) 31 U/L (12-78) CPK 61 U/L (24-260) MAGNESIUM 2.4 mg/dL (1.8-2.4) TROPONIN I 0.14 ng/mL (0.00-1.5) TROPONIN REFERENCE RANGE:<0.1 NEGATIVE0.1-1.5 INDETERMINANT>1.5 POSITIVE . PROGRESS AND PROCEDURES Cardioversion: Indication: unstable atrial fibrillation. Pre-procedure time-out not completed due to emergent condition of patient. Patient clinically unstable with hypotension and altered level of consciousness. IV established. O2 administered. Placed on classroom monitor and pulse oximeter. Airway equipment present. Cardioversion performed by me. Morphine 2 mg IVP given. Electrical cardioversion using pads. First shock at 200 joules. Post cardioversion rhythm: normal sinus rhythm. No complications. C-Spine Status: Cervical spine cleared by history and physical exam. Patient alert and oriented times three and does not appear intoxicated. No complaint of neck pain. There is no neurological deficit or point tenderness on examination. Full cervical spine range of motion without pain. Critical care performed (120 minutes). Time is exclusive of separately billable procedures. Time includes: direct patient care, patient reassessment, coordination of patient care, interpretation of data (laboratory data, pulse oximetry and chest xrays), review of patient's medical records, medical consultation, family consultation regarding treatment decisions and documentation of patient care. The patient required critical care due to the acute impairment of vital organ systems (cardiovascular) and a high probability of life threatening deterioration. Numerous emergent interventions were required to prevent life threatening deterioration. Call placed to on-call health care provider call placed [phone] to [facility], spoke w/ clinical administrative coordinator about patient status, she will attempt to contact [facility] and call back. Consult obtained from vascular surgery. call returned 10:04 Dr. Leija. Patient to be flown to [facility] and taken straight to the OR. Case discussed. Phone consult only. Disposition: Transferred to [facility]. Condition: critical. CLINICAL IMPRESSION Symptomatic abdominal aortic aneurysm with rupture. Chronic atrial fibrillation with uncontrolled rate. Moderate leukocytosis with bandemia. Moderate hyperglycemia. (Electronically signed by Parag aVn Dr. 11/12/2016 10:30)
--- NOTE | 2016-11-12 10:05 | ED NURSING NOTES ---
Clinical Report - Nurses [facility] [address] [place] [address] 11/12/2016 6:06 Patient: EDISON PINON [facility]#: [id number] TRIAGE Triage time 06:05 Nov 12 2016. Acuity: LEVEL 2. Chief Complaint: (Fall, Rapid Atrial Fibrillation). SEPSIS SCREEN: Sepsis Screen: negative. Negative (no infection suspected/documented). AUTUMN COMA SCORE: Compton Coma Scale: 12- eyes open to voice (3); best verbal response- disoriented (4); best motor response- localizes to pain (5). --06:12 Preethi Patricia 06:07 11/12/16. BP: 103/71. HR: 145 (irregularly-irregular). RR: 32. Temp: unable to obtain. Pain level now unable to obtain. Additional comments: will atempt rectal . --06:12 Preethi Patricia 06:13 11/12/16. Temp: 95.8 F (rectal). --06:13 Preethi Patricia. Weight: 90 kg measured. --06:24 Preethi Patricia. Height/Length: 64 inches Estimated. BMI: 34.1. --07:41 Sergio Busch R.N. Medications Pradaxa Oral. --06:28 Preethi Patricia TraZODone HCl Oral. --06:28 Preethi Patricia PredniSONE Oral. --06:28 Preethi Patricia Synthroid Oral. --06:29 Preethi Patricia Antidepressant. --06:29 Preethi Patricia. Medication/allergy information source: EMS. --06:12 Preethi Patricia. Allergies Ezetimibe. --06:27 Preethi Patricia Darvocet. --06:27 Preethi Patricia Tape. --06:27 Preethi Patricia Codeine. --06:27 Preethi Patricia. History Arrived by EMS. Historian: EMS. This started just prior to arrival. ( EMS reports patient took a fall tonight at which point she broke a water faucet and become soaked with cold water, patient was laying for unknown amount of time around ten minutes soaked and shivering. Patient has history of stroke and atrial fibrillation. EMS reports patient was found in rapid atrial fibrillation). SOCIAL HX: Smoker - current status unknown. Alcohol use. (status unknown). History of drug use. (unknown). No infectious disease exposure. FALL RISK ASSESSMENT: Fall risk assessment completed. No fall risk identified. NUTRITIONAL RISK ASSESSMENT: The nutritional risk assessment revealed no deficiencies. FUNCTIONAL ASSESSMENT: Functional assessment: no impairments noted. LEARNING NEEDS ASSESSMENT: The learning needs assessment revealed no barriers. SKIN INTEGRITY ASSESSMENT: Skin integrity risk assessment completed. No skin integrity risk identified. --06:12 Preethi Patricia. PROBLEMS: TIA - Transient Ischemic Attack. CVA - Cerebrovascular Accident. Aneurysm, Cerebral. --:30 Preethi Patricia. ADDITIONAL SURGERIES: Unknown. --:30 Preethi Patricia. Interventions ID band on patient. To treatment room. --06:12 Preethi Patricia. PHYSICAL ASSESSMENT To room via stretcher. Patient gowned. GENERAL / NEURO / PSYCH: Appears in distress. Decreased awareness. RESPIRATORY: Respiratory distress. CVS: Cardiac rhythm: atrial fibrillation. SKIN: Skin is pale. ( skin cool to touch). --06:14 Preethi Patricia. NURSING PROGRESS NOTES Oxygen administered by nonrebreather mask at 15 liters. equipment monitor phototypesetting, pulse oximeter and NIBP monitor placed on patient; monitor alarms on. --06:15 Preethi Patricia 06:14 11/12/2016 Diltiazem IVP 20 mg given over 1 minute(s) via site #1. IV patency established. IV site checked: no pain, redness, or swelling. IV flushed thoroughly pre- and post-medication administration. IVP given by RN. --06:16 Preethi Patricia 06:15 11/12/2016 Site #1 started via IV in the left antecubital space with an 18g angiocath; one attempt. Saline lock flushed with 10 mL saline. --06:15 Preethi Patricia 06:16 11/12/2016 Started bag #1 1000 mL IV Fluids IV NS (Saline); at 1000 mL/hr over 1 hour(s) via site #1. Allergies verified and confirmed 5 rights. IV patency established. IV site checked: no pain, redness, or swelling. IV flushed thoroughly pre- and post-medication administration. --06:16 Preethi Patricia ( Bear hugger applied, warm blankets applied,). --06:16 Preethi Patricia Two patient identifiers checked. Side rails up. Bed placed in lowest position. Brakes of bed on. ( Provider at bedside, C-collar applied). --06:18 Preethi Patricia 06:18 11/12/16. BP: 97/73. HR: 100. RR: 24. O2 saturation: 96% on non-rebreather. --06:23 Preethi Patricia EKG time: (06:27 Nov 12 2016). --06:25 Preethi Patricia Patient ID band checked for patient name and birthdate: patient confirmed. Blood samples drawn from the right hand peripheral IV site with Vacutainer by nurse ; labeled in presence of the patient and sent to lab: rainbow set. Line flushed with 10 mL normal saline post blood draw. --06:26 Preethi Patricia Patient transported to CT by stretcher with nurse and tech. (06:29 Nov 12 2016). --06:31 Preethi Patricia Patient returned from CT by stretcher with tech. (06:42 Nov 12 2016). --06:42 Preethi Patricia 06:44 11/12/16. BP: 107/50. HR: 95. RR: 20. O2 saturation: 98% on room air. --06:48 Preethi Patricia ( Patient now responding to questions, she reports abdominal pain. Patient responding well on room air, NRB removed. Patient recalls taking a fall. She cannot recall the trip to the hospital. Patient is oriented to place, month and year.). --06:48 Preethi Patricia 06:38 11/12/2016 Site #2 started via IV in the right antecubital space with an 20g angiocath, with aseptic technique and good blood return; one attempt. Blood drawn: rainbow set. Labeled in the presence of the patient and sent to the lab. Saline lock flushed with 10 mL saline. --06:53 Preethi Patricia 06:57 11/12/16. BP: 72/43. HR: 100. RR: 22. O2 saturation: 97% on room air. --06:59 Preethi Patricia ( Patient feeling nauseated, given zofran, provider notified of vitals). --06:59 Preethi Patricia 07:00 11/12/2016 Zofran (Ondansetron HCl) IVP 4 mg given over 1 minute(s) via site #1. Allergies verified and confirmed 5 rights. IV patency established. IV site checked: no pain, redness, or swelling. IV flushed thoroughly pre- and post-medication administration. IVP given by RN. --07:00 Preethi Patricia 07:04 11/12/16. BP: 101/61. HR: 122. RR: 19. O2 saturation: 97% on room air. Temp: 96.7 F (rectal). --07:17 Preethi Patricia ( Provider at bedside). --07:31 Preethi Patricia 07:28 11/12/16. BP: 94/70. HR: 148. O2 saturation: 95% on nasal cannula at 2 liters/minute. --07:31 Preethi Patricia 07:32 11/12/2016 Started bag #1 1000 mL IV Fluids IV NS (Saline); at 1000 mL/hr over 1 hour(s) via site #1. Allergies verified and confirmed 5 rights. IV patency established. IV site checked: no pain, redness, or swelling. IV flushed thoroughly pre- and post-medication administration (Pressure bag). --07:33 Preethi Patricia 14 fr temperature sensing zambrano catheter for close monitoring of hypothermia. Data sent to monitor. Reason for indwelling catheter: patient's decreased level of consciousness. Return of yellow-colored clear urine. She tolerated procedure well. --07:39 Preethi Patricia ( Patient agitated and pulling at tubes.). --07:48 Preethi Patricia 07:48 11/12/16. Temp: 35.4 C. Additional comments: Indwelling Cathetar . --07:48 Preethi Patricia Care transferred and report received (at 0700). --08:41 Sergio Bsuch R.N. late entry -07:30. ( Assumed care of pt, pt hypothermic and hypotensive. MD at bedside. Placed bear hugger on pt.). --08:43 Sergio Busch R.N. late entry -07:30. equipment monitor phototypesetting, pulse oximeter and NIBP monitor placed on patient; monitor alarms on. --09:19 Sergio Busch R.N. late entry -08:00. ( Pt with unstable HR, Afib with RVR with SBP consistently in the 70's). --09:19 Sergio Busch R.N. <<STRICKEN ENTRY-- late entry -08:02. CARDIOVERSION: Synchronized cardioversion performed by ED physician. Assisted by two nurses. Preparation: placement of pulse oximeter; oxygen administration; intubation equipment, BVM, and suction at bedside; cardiac cath technician with defibrillator and conductor pads applied; NIBP monitor applied; IV established. (see medication / fluid manager operations and procurement for meds used in this procedure). 1st attempt (801). Pre-cardioversion rhythm: a-fib. 100 joules delivered. Cardioversion was successful. Post-cardioversion rhythm: normal sinus rhythm. Post-procedure: she was stable. Total time of assist / procedure: 15 minutes. --09:20 Sergio Busch R.N. --END STRIKE>> Correction --14:05 Sergio Busch R.N. 08:02 11/12/16. BP: 95/49. HR: 70. RR: 22. O2 saturation: 100% on nasal cannula at 2 liters/minute. --09:22 eSrgio Busch R.N. late entry -08:02. --09:22 Sergio Busch R.N. late entry -09:00. Patient transported to radiology and CT by stretcher with O2, monitor, nurse and tech. Patient returned from radiology by stretcher with O2, monitor, nurse and tech. (15). ( Stable with no complications on return). --09:23 Sergio Busch R.N. 09:27 11/12/16. BP: 124/66. HR: 82 (regular). RR: 17. O2 saturation: 100% on nasal cannula at 2 liters/minute. Temp: 35.9 C. Pain level now unable to obtain. Additional comments: bladder temp core. --09:28 Sergio Busch R.N. 09:28 11/12/16. Cardiac rhythm: normal sinus rhythm; (80). --09:28 Sergio Busch R.N. 07:30 11/12/2016 PHENERGAN (Promethazine HCl) IVP 12.5 mg given over 2 minute(s) via site #2. Allergies verified and confirmed 5 rights. IV patency established. IV site checked: no pain, redness, or swelling. IV flushed thoroughly pre- and post-medication administration. IVP given by RN. --09:55 Sergio Busch R.N. 07:40 11/12/2016 Started of Diltiazem Drip IV; at 5 mg/hr over 1 hour(s) via site #2; Allergies verified and confirmed 5 rights. IV patency established. IV site checked: no pain, redness, or swelling. IV flushed thoroughly pre- and post-medication administration. Completed per protocol. --09:51 Sergio Busch R.N. 07:54 11/12/2016 Morphine IVP 2 mg given over 1 minute(s) via site #3. Allergies verified, confirmed 5 rights and sedative warning given. IV patency established. IV site checked: no pain, redness, or swelling. IV flushed thoroughly pre- and post-medication administration. IVP given by RN. --09:54 Sergio Busch R.N. 08:00 11/12/2016 IV Fluids IV NS Discontinued: bag #1 infused. Total amount infused: 1 Liter mL. --10:18 Sergio Busch R.N. 08:05 11/12/2016 IV Fluids IV NS Discontinued: bag #2 infused. Total amount infused: 1000 mL. IV patency established. IV site checked: no pain, redness, or swelling. IV flushed thoroughly. --10:19 Sergio Busch R.N. 09:29 11/12/16. ( pt with occasional runs of V-tach, 5 beats, aware continue to monitor). --09:29 Sergio Busch R.N. 09:11/12/16. Cardiac rhythm: normal sinus rhythm. --: Sergio Busch R.N. 09:11/12/16. Reassessment after fluids administered, procedure, intervention and medication administered. Overall patient status is improved- she states feels better. --: Sergio Busch R.N. 09:11/12/16. Two patient identifiers checked. Call light placed in reach. Side rails up x 2. Bed placed in lowest position. Brakes of bed on. Brakes of chair on. --:29 Sergio Busch R.N. <<STRICKEN ENTRY-- 09:11/12/16. 20 fr NG tube inserted in right nostril with moderate difficulty. Placement confirmed by auscultation and return of gastric contents. Return: brown fluid. Tube secured. Attached to low suction. --09:30 Sergio Busch R.N. --END STRIKE>> Correction --09:31 Sergio Busch R.N. 09:11/12/16. 18 fr NG tube inserted in right nostril with moderate difficulty. Placement confirmed by auscultation and return of gastric contents. Return: brown fluid. Tube secured. Attached to low suction. (placed at 58 cm right nare). --09:31 Sergio Busch R.N. 09:34 11/12/16. ( See print out for vitals). --09:34 Sergio Busch R.N. 07:20 11/12/16. BP: 87/71. HR: 132. RR: 20. O2 saturation: 99% on nasal cannula at 2 liters/minute. --09:35 Sergio Busch R.N. 09:43 11/12/16. --09:43 Sergio Busch R.N. 09:42 11/12/16. BP: 119/97. HR: 78. RR: 18 (regular). O2 saturation: 100% on nasal cannula at 2 liters/minute. Temp: 36 C. Additional comments: core bladder. 09:27 11/12/16. BP: 124/66. HR: 82 (regular). RR: 17. O2 saturation: 100% on nasal cannula at 2 liters/minute. Temp: 35.9 C. Pain level now unable to obtain. Additional comments: bladder temp core. 09:15 11/12/16. BP: 124/66. HR: 81. RR: 18. O2 saturation: 100% on nasal cannula at 2 liters/minute. Temp: 36 C. Additional comments: core bladder. 09:00 11/12/16. BP: 146/67. HR: 81. RR: 20. O2 saturation: 100% on nasal cannula at 2 liters/minute. Temp: 35.9 C. Additional comments: core bladder. 08:50 11/12/16. BP: 135/72. HR: 76. RR: 18. O2 saturation: 100% on nasal cannula at 2 liters/minute. Temp: 35.9 C. Additional comments: core bladder. 08:40 11/12/16. BP: 119/87. HR: 76. RR: 20. O2 saturation: 100% on nasal cannula at 2 liters/minute. Temp: 35.9 C. Additional comments: core bladder. 08:30 11/12/16. BP: 145/68. HR: 82. RR: 18. O2 saturation: 100% on nasal cannula at 2 liters/minute. 08:20 11/12/16. BP: 147/67. HR: 98. RR: 14. O2 saturation: 100% on nasal cannula at 2 liters/minute. 08:10 11/12/16. BP: 120/50. HR: 97. RR: 18. O2 saturation: 100% on nasal cannula at 2 liters/minute. 08:02 11/12/16. BP: 95/49. HR: 70. RR: 22. O2 saturation: 100% on nasal cannula at 2 liters/minute. 07:55 11/12/16. BP: 95/49. HR: 122. RR: 20. O2 saturation: 99% on nasal cannula at 2 liters/minute. 07:48 11/12/16. Temp: 35.4 C. Additional comments: Indwelling Cathetar . 07:30 11/12/16. HR: 146. 07:28 11/12/16. BP: 94/70. HR: 148. O2 saturation: 95% on nasal cannula at 2 liters/minute. 07:20 11/12/16. BP: 87/71. HR: 132. RR: 20. O2 saturation: 99% on nasal cannula at 2 liters/minute. 07:04 11/12/16. BP: 101/61. HR: 122. RR: 19. O2 saturation: 97% on room air. Temp: 96.7 F (rectal). 06:57 11/12/16. BP: 72/43. HR: 100. RR: 22. O2 saturation: 97% on room air. 06:44 11/12/16. BP: 107/50. HR: 95. RR: 20. O2 saturation: 98% on room air. 06:18 11/12/16. BP: 97/73. HR: 100. RR: 24. O2 saturation: 96% on non-rebreather. 06:13 11/12/16. Temp: 95.8 F (rectal). 06:07 11/12/16. BP: 103/71. HR: 145 (irregularly-irregular). RR: 32. Temp: unable to obtain. Pain level now unable to obtain. Additional comments: will atempt rectal . --09:43 Sergio Busch R.N. 09:45 11/12/16. ( Pt was AFib with RVR and has been in NSR with occasional 5 to 10 beat Runs of (V-tach_every 5-10 min), MD aware that pt has been in NSR since cardio version at 0802). --09:45 Sergio Busch R.N. 09:46 11/12/16. ( Lab at bedside drawing type and screen). --09:46 Sergio Busch R.N. 10:11 11/12/16. BP: 94/44. HR: 76. RR: 16. O2 saturation: 100% on nasal cannula at 2 liters/minute. Temp: 36.1 C. Additional comments: core bladder. --10:11 Sergio Busch R.N. late entry -07:02. ( aware of critical d-dimer at 0702 by JEWEL Perez). --10:15 Sergio Busch R.N. 09:51 11/12/2016 Started bag #3 1000 mL IV Fluids IV NS (Saline); at 1000 mL/hr over 1 hour(s) via site #2. Allergies verified and confirmed 5 rights. IV patency established. IV site checked: no pain, redness, or swelling. IV flushed thoroughly pre- and post-medication administration. Completed per protocol. --10:16 Sergio Busch R.N. 09:52 11/12/2016 Started bag #1 1000 mL IV Fluids IV NS (Saline); at 1000 mL/hr over 1 hour(s) via site #2 --10:17 Sergio Busch R.N. 09:54 11/12/2016 IV Fluids IV NS Discontinued: bag #4 completed. Total amount infused: 1000 mL. IV patency established. IV site checked: no pain, redness, or swelling. IV flushed thoroughly. --10:19 Sergio Busch R.N. <<STRICKEN ENTRY-- 09:55 11/12/2016 IV Fluids IV NS Discontinued: bag #4. Total amount infused: 1000 mL. IV patency established. IV site checked: no pain, redness, or swelling. IV flushed thoroughly. --10:20 Sergio Busch R.N. --END STRIKE>> Correction. --14:17 Sergio Busch R.N. Critical value relayed to ED by Austyn. Critical value received by Sergio HOLLOWAY. Lactate 4.4. --11:05 Sergio Busch R.N. late entry -0802. CARDIOVERSION: Synchronized cardioversion performed by ED physician. Assisted by two nurses. Preparation: placement of pulse oximeter; oxygen administration; intubation equipment, BVM, and suction at bedside; cardiac cath technician with defibrillator and conductor pads applied; NIBP monitor applied; IV established. (see medication / fluid manager operations and procurement for meds used in this procedure). 1st attempt (801). Pre-cardioversion rhythm: a-fib. 200 joules delivered. Cardioversion was successful. Post-cardioversion rhythm: normal sinus rhythm. Post-procedure: she was stable. Total time of assist / procedure: 15 minutes. --14:06 Sergio Busch R.N. 09:55 11/12/2016 IV Fluids IV NS Discontinued: bag #3. Total amount infused: 1000 mL. IV patency established. IV site checked: no pain, redness, or swelling. IV flushed thoroughly. --14:17 Sergio Busch R.N. 10:09 11/12/16. ( ETA airlift 15 min). --10:09 Sergio Busch R.N. 10:11/12/16. Finger stick glucose: 248 mg/dL; performed by nurse; result shown to the ED physician. --10:09 Sergio Busch R.N. 10:11 11/12/16. Cardiac rhythm: normal sinus rhythm. --10:11 Sergio Busch R.N. 10:12 11/12/2016 Insulin REG IVP 6 unit given over 1 minute(s) via site #2. Allergies verified and confirmed 5 rights. IV patency established. IV site checked: no pain, redness, or swelling. IV flushed thoroughly pre- and post-medication administration. IVP given by RN. --10:12 Sergio Busch R.N. 10:13 11/12/2016 Site #[address] upon transfer; patent; flushes easily. --10:13 Sergio Busch R.N. 10:13 11/12/2016 Site #[address] upon transfer; flushes easily. --10:13 Sergio Busch R.N. 10:18 11/12/16. ( Total of 4 Liters NS infused, pt with SPB 94, ordered to given one more liter NS, started bag 5 at 999mL/hr). --10:18 Sergio Busch R.N. 10:21 11/12/2016 Started bag #5 1000 mL IV Fluids IV NS (Saline); at 1000 mL/hr over 1 hour(s) via site #2. Allergies verified and confirmed 5 rights. Completed per protocol. --10:21 Sergio Busch R.N. 10:24 11/12/16. ( C-collar removed by ). --10:24 Sergio Busch R.N. correction to prior entry -. ( Correction to IV fluids, times: 0732-Infused 1 Liter NS of bag one. 0733-Started bag 2 NS at 999 mL/hr 0830-Bag 2 infused of NS 1 Liter 0930-Bag 2 infused started bag 3 at 999 mL/hr 1000-Bag 3 infused and started bag 4 at 999 mL/hr 1025-Bag 4 infused and started bag 5 at 999 mL/hr). --14:23 Sergio Busch R.N. late entry -10:36. ( 1:1 RN nursing care during duration of ER visit. Pt required multiple turns, interventions (cardio version, NG tube, zambrano) frequent monitoring of I and O's. Oral care provided every 1 hour, family education required for interventions and plan of care. Pt departed via Airlift and was able to answer simple questions though slow to respond and lethargic. All info relayed to [facility] staff during report and airlift [place].). --14:31 Sergio Busch R.N. Intake & Output 09:25 11/12/16. IV fluids: 3 liters NS. IVPB volume: Dilt 10cc. Urine: 100 mL, with return of yellow-colored urine. Gastric tube output: 20 mL. --09:25 Sergio Busch R.N. 10:22 11/12/16. TOTAL INTAKE: total on DC 4 Liters NS, 20 cc IVPB Dilt. --10:22 Sergio Busch R.N. 10:22 11/12/16. TOTAL OUTPUT: 150 total urine out, NG Tube 20 mLs. --10:22 Sergio Busch R.N. DISPOSITION / DISCHARGE 08:30 11/12/2016 Site #1. Pain noted. --09:26 Sergio Busch R.N. 08:55 11/12/2016 Site #1 removed. Catheter intact. Pressure dressing applied. --09:26 Sergio Busch R.N. 09:02 11/12/2016 Site #3 started via IV in the left antecubital space with an 18g angiocath, with aseptic technique and good blood return; one attempt. Saline lock flushed with 10 mL saline (Ultra sound guided). --09:27 Sergio Busch R.N. 09:24 11/12/16. Bed requested ([facility] airlift for possible Abd aortic disection). Patient's personal items include, given to family. --09:24 Sergio Busch R.N. 09:11/12/16. Patient and daughter notified of admission (at bedside). --09:25 Sergio Busch R.N. 10:11/12/16. --10:23 Sergio Busch R.N. 10:11/12/16. BP: 100/50. HR: 80. RR: 20. O2 saturation: 100% on nasal cannula at 2 liters/minute. Temp: 36.1 C. Additional comments: Core bladder. --10:23 Sergio Busch R.N. 10:11/12/16. Cardiac rhythm: normal sinus rhythm; (85). Condition at departure: critical. --10:23 Sergio Busch R.N. 10:36 11/12/16. Transported via helicopter by nurse and transport team with monitor, defibrillator, IV, O2 and emergency medications. Report was given to a nurse. Report included patient's care, treatment, medications, reviewed medication reconcilliation, and condition (including any recent changes or anticipated changes). All questions were answered. Report was acknowledged and care was transferred. (Flight RN x2). --10:36 Sergio Busch R.N. 10:37 11/12/16. Cardiac rhythm: normal sinus rhythm; (89). --10:37 Sergio Busch R.N. 10:36 11/12/16. BP: 85/43. BP. ED physician notified. HR: 91. RR: 22. O2 saturation: 98% on nasal cannula at 2 liters/minute. Temp: 36.1 C. Additional comments: core bladder. --10:37 Sergio Busch R.N. 11:11/12/16. Report was given to a nurse. Report included patient's care, treatment, medications, reviewed medication reconcilliation, and condition (including any recent changes or anticipated changes). No questions were asked. Care was transferred. (OR [facility]). ( Report called to [facility] OR staff). --11:01 Sergio Busch R.N. <<JULI ENTRY-- Cardiac rhythm: normal sinus rhythm. --14:34 Sergio Busch R.N. --END STRIKE>> Correction --14:36 S[facility]ch R.N. [facility]-- 11:00 11/12/16. BP: 104/53. HR: 78. RR: 18. O2 saturation: 100% on nasal cannula at 2 liters/minute. Temp: 36.1 C. Additional comments: Core Bladder. --14:34 Sergio Busch R.N. --END STRIKE>> Correction --14:35 Sergio Busch R.N. late entry -10:37. Cardiac rhythm: normal sinus rhythm. --14:36 Sergio Busch R.N. 10:37 11/12/16. BP: 104/53. HR: 78. RR: 18. O2 saturation: 100% on nasal cannula at 2 liters/minute. --14:36 Sergio Busch R.N. late entry -10:37. Cardiac rhythm: normal sinus rhythm. --14:37 Sergio Busch R.N. Departure time: 1037. --14:37 Sergio Busch R.N. Locked/Released at 11/12/2016 14:39 by Sergio Busch R.N.
--- NOTE | 2016-11-12 10:05 | ED ORDER SUMMARY ---
..... Patient: EDISON PINON OrderSheet [facility] VisitID: [id number] [place] [address] 86y, F Registration Date/Time: 11/12/2016 ORDER SHEET Weight: 90 kg (measured) Allergies: Ezetimibe, Darvocet, Tape, Codeine GENERAL ORDERS: Chest 1V Urgent (06:14 11/12/2016 Odette Martin) (6:41 CFalkner R.N.) Cardiac Panel Stat (06:14 11/12/2016 Odette Martin) (Ack 6:31 HSoule) (6:41 CFalkner R.N.) BNP Urgent (06:14 11/12/2016 Odette Martin) (Ack 6:31 HSoule) (6:41 CFalkner R.N.) D-Dimer Urgent (06:14 11/12/2016 Odette Martin) (Ack 6:31 HSoule) (6:41 CFalkner R.N.) EKG - ER Stat (06:14 11/12/2016 Odette Martin) (6:31 HSoule) CT Head wo Cont Urgent (06:35 11/12/2016 Odette Martin) (6:41 CFalkner R.N.) PT with INR Urgent (07:03 11/12/2016 Odette Martin) (7:15 LMuller) PTT Urgent (07:03 11/12/2016 Odette Martin) (7:15 LMuller) CT Abd/Pel w Cont (No) (27/1.3) (OK from Dr. Godinez to give IV contrast) Urgent (07:16 11/12/2016 Odette Martin) (Ack 7:20 LMuller) (9:50 JBoardley R.N.) Blood Culture (No) (N/A) Urgent (07:17 11/12/2016 Odette Martin) (Ack 7:20 LMuller) (7:49 HSoule) Lactic Acid for Sepsis Protocol Urgent (07:19 11/12/2016 Odette Martin) (Ack 7:20 LMuller) (9:50 JBoardley R.N.) PCT (Procalcitonin) Urgent (07:19 11/12/2016 Odette Martin) (Ack 7:20 LMuller) (9:50 JBoardley R.N.) CTA Thorax w Cont (No) (27/1.3) Urgent (07:21 11/12/2016 Odette Martin) (Ack 7:28 LMuller) (9:50 JBoardley R.N.) Type & Screen Urgent (09:39 11/12/2016 Odette Martin) (Ack 9:46 LMuller) (9:56 JBoardley R.N.) MEDICATION ORDERS: Phenergan IV 12.5 mg (HIGH ALERT MEDICATION, NOW) (09:54 11/12/2016 Genaro R.NAnnie verbal order read back to Odette Martin) (9:55 JBoardley R.N.) IV FLUIDS: IV NS : initial bolus none -, then 1000 mL/hr for X1 (NOW) (06:13 11/12/2016 Odette Martin) (6:16 HSoule) Diltiazem IV 20 mg (HIGH ALERT MEDICATION, NOW) (06:14 11/12/2016 Odette Martin) (6:16 HSoule) Zofran IV 4 mg (NOW) (06:58 11/12/2016 Odette Martin) (7:00 HSoule) Diltiazem Drip IV : 5 mg/hr (HIGH ALERT MEDICATION, NOW, TITRATE) (06:58 11/12/2016 Odette Martin) (Hold 7:22 HSoule) (9:51 Genaro R.N.) IV NS with Normal Saline 1 Liter: initial bolus 1000 mL (1000 mL/hr), then 1000 mL/hr for X1 (NOW) (07:32 11/12/2016 HSoule verbal order read back to Odette Martin) (7:33 HSoule) Morphine IV 2 mg (HIGH ALERT MEDICATION, NOW) (09:52 11/12/2016 Genaro R.NAnnie verbal order read back to Odette Martin) (9:54 Genaro R.N.) Insulin Reg IV 6 units (HIGH ALERT MEDICATION, NOW) (10:12 11/12/2016 Genaro Alvarado verbal order read back to Odette Martin) (10:12 Genaro Alvarado) IV NS : initial bolus 1000 mL (1000 mL/hr), then 1000 mL/hr for X2 (NOW) (10:16 11/12/2016 Genaro Alvarado verbal order read back to Odette Martin) (10:16 Genaro Alvarado) IV NS : initial bolus none -, then 1000 mL/hr for X1 (NOW); Stat (10:20 11/12/2016 Genaro Alvarado verbal order read back to Odette Martin) (10:21 Genaro Alvarado) ORDER SHEET NOTES: [Electronically signed by Parag Van Dr. (10:30 11/12/2016)] [Electronically signed by Sergio Busch R.N. (14:39 11/12/2016)] [Electronically locked/signed by Sergio Busch R.N. (14:39 11/12/2016)]
--- NOTE | 2016-11-12 10:05 | ED CLINICAL REPORT ---
Clinical Report - Physicians/Mid Levels [facility] [address] [place] [address] 11/12/2016 6:06 [id number] Time Seen: 06:17; initial patient contact. Arrived- By ambulance. Historian- EMS personnel. HISTORY OF PRESENT ILLNESS Chief Complaint: FALL. Location of injuries- abdomen. The injury occurred just prior to arrival. Fell while standing and landed on the ground. Occurred at home. The patient complains of moderate pain in the abdomen. REVIEW OF SYSTEMS No chest pain or fever. She has had difficulty breathing, nausea, abdominal pain and vomiting. All systems otherwise negative, except as recorded above. PAST HISTORY ( TIA - Transient Ischemic Attack. Hypothyroidism. Essential Hypertension. Hyperlipidemia. Vertigo. Sleep Apnea. Dyspnea. Chronic pancreatitis. C. Difficile Colitis. Agoraphobia. Hypertension. Hiatal Hernia. Pulmonary Nodule. LNMP - Last Normal Menstrual Period. Chest Pain. Diarrhea. UTI - Urinary Tract Infection. Hypokalemia. Hypotension. Depression. Atrial Fibrillation. Abdominal aortic aneurysm. ADDITIONAL SURGERIES: Appendectomy. Back Surgery. Brain surg, for aneurysm. Eeyes w/implants . Hysterectomy.). Medications: Antidepressant. Synthroid Oral. PredniSONE Oral. TraZODone HCl Oral. Pradaxa Oral. Allergies: Codeine. Darvocet. Ezetimibe. Tape. SOCIAL HISTORY Never smoker. No alcohol use or drug use. ADDITIONAL NOTES The nursing notes have been reviewed with agreement regarding the chief complaint, PMH and patient medications and allergies. PHYSICAL EXAM Vital Signs: 11/12/2016 06:13 Temp: 95.8 F. 11/12/2016 06:07 BP: 103/71. HR: 145. RR: 32. Have been reviewed. Hypotensive. Tachycardic. Tachypneic. Hypothermic. Appearance: C-collar in place. Lethargic. Patient in moderate distress. Head: No swelling of head. No Basilio's sign or raccoon eyes. Eyes: Pupils equal, round and reactive to light. EOM intact. ENT: No dental injury. Neck: No pain with movement of head/neck. No muscle spasm in the neck. Painless ROM. Non-tender. Non-tender. Non-tender. No vertebral tenderness. CVS: Tachycardia. Abnormal rhythm, which is irregularly irregular. Respiratory: Mild respiratory distress with tachypnea. Breath sounds normal. Abdomen: No visible injury. Soft. Moderate tenderness in the left side of the abdomen with guarding present. No rebound tenderness. Abnormal bowel sounds: hyperactive and high pitched. Moderate, pulsatile mass with guarding present in the left abdomen. Skin: Moderately cool skin. No skin rash. Extremities: Extremities atraumatic. Neuro: Altered mental status. Eyes open to voice. Best verbal response: disoriented. Best motor response: obeys commands. LABS, X-RAYS, AND EKG Chest X-ray: (1. Mild to moderate cardiomegaly). Views: AP. Technique: good. The X-rays were independently viewed by me, interpreted by the radiologist and contemporaneously by me and discussed with the radiologist. Prior films were not available for comparison. Chest CT: (1. No evidence of pulmonary emboli, aortic dissection or aneurysm 2. Ground-glass appearance of the lung bases which may represent pulmonary edema 3. Cardiomegaly with small left pleural effusion). Chest CT performed with contrast. Prior studies were not available for comparison. The study was interpreted by the radiologist and discussed with the radiologist. CT Abdomen: 1. 5.6 cm infrarenal abdominal aortic leaking aneurysm with large retroperitoneal hemorrhage 2. Secondary compression of the IVC and bilateral renal veins 3. Cholelithiasis 4. 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 Moderate hiatal hernia with NG tube in place. Study type: upper abdomen; lower abdomen; pelvis. Abdominal CT performed with IV contrast. Prior studies were not available for comparison. The study was interpreted by the radiologist and discussed with the radiologist. Laboratory Tests: CBC w Diff: (CABRERA: 11/12/2016 06:15) ( MsgRcvd 11/12/2016 06:32) Final results Test Result Flag Units (Reference) WHITE BLOOD COUNT 19.1 H K/uL (4.5-11.5) RED BLOOD COUNT 4.58 M/uL (4.00-5.20) HEMOGLOBIN 13.7 gm/dL (12.0-16.0) HEMATOCRIT 41.8 % (36.0-46.0) MEAN CELL VOLUME 91 fL (80-100) MEAN CORPUSCULAR HGB 30 pg (26-34) MEAN CORPUSCULAR HGB CONC 33 g/dL (31-37) RED CELL DISTRIBUTION WIDTH 16.7 H % (11.6-14.8) PLATELET COUNT 128 L K/uL (150-400) NEUTROPHIL % 76.9 H % (50-75) LYMPH % 17.4 L % (25-40) MONO % 3.7 % (3-14) EOSINOPHIL % 1.2 % (0-4) BASOPHIL % 0.8 % (0-2) PT with INR: (CABRERA: 11/12/2016 06:45) ( [facility] 11/12/2016 07:17) Final results Test Result Flag Units (Reference) INR 1.0 (0.8-1.2) Low Intensity Therapy: INR 1.5-2.0 PT range 18.5-23.1Mod.Intensity Therapy: INR 2.0-3.0 PT range 23.1-31.5High Intensity Therapy: INR 2.5-3.5 PT range 27.4-35.5High Intensity Therapy 2: INR 3.0-4.0 PT range 31.5-39.3 APTT 27 SECONDS (24-34) [id number]: (CABRERA: 11/12/2016 06:15) ( [facility] 11/12/2016 07:03) Final results Test Result Flag Units (Reference) D-DIMER QUANTITATIVE 9.22 *H ug/mLFEU (0.27-0.52) CRITICAL RESULTS CALLEDCalled to GABRIEL 11/12/16 0702Were 2 patient identifiers used? YWas the result read back? YThe primary value of this quantitative assay relates toits negative predictive value (i.e. exclusion) of pulmonaryembolism/deep vein thrombosis/DIC.Elevated levels of d-dimer may also occur with:, age, cancer, inflammation, liver disease,post-op, infection, hematoma, coronary disease, peripheralarteriopathy, bleeding disorders and thrombolytic treatment.Results should be correlated with other clinical andradiological data.Testing Methodology: Latex Immunoassay BNP: (CABRERA: 11/12/2016 06:15) ( MsgRcvd 11/12/2016 06:40) Final results Test Result Flag Units (Reference) B-TYPE NATRIURETIC PEPTIDE 390 H pg/ml (5-100) CHEM 13 PANEL: (CBARERA: 11/12/2016 06:15) ( MsgRcvd 11/12/2016 06:52) Final results Test Result Flag Units (Reference) GLUCOSE 309 H mg/dL (70-110) BUN 27 H mg/dL (7-18) CREATININE 1.3 mg/dL (0.6-1.3) Estimated GFR 41.09 mL/min Estimated GFR- 49.80 mL/min Note: Persistent reduction over 3 months in eGFR<60 mL/min/1.73 m2 defines CKD. Patients with eGFR values>=60 mL/min/1.73 m2 may also have CKD if evidence ofpersistent proteinuria. Additional information may be foundat www.kidney.org. SODIUM 144 mmol/L (136-145) POTASSIUM 3.9 mmol/L (3.5-5.1) CHLORIDE 106 mmol/L (98-107) CARBON DIOXIDE 24 mmol/L (21-32) CALCIUM 8.0 L mg/dL (8.5-10.1) TOTAL PROTEIN 6.3 L g/dL (6.4-8.2) ALBUMIN 2.5 L g/dL (3.3-5.0) BILIRUBIN, TOTAL 0.5 mg/dL (0.0-1.0) ALKALINE PHOSPHATASE 62 U/L (46-116) AST (SGOT) 37 U/L (15-37) ALT (SGPT) 31 U/L (12-78) CPK 61 U/L (24-260) MAGNESIUM 2.4 mg/dL (1.8-2.4) TROPONIN I 0.14 ng/mL (0.00-1.5) TROPONIN REFERENCE RANGE:<0.1 NEGATIVE0.1-1.5 INDETERMINANT>1.5 POSITIVE . PROGRESS AND PROCEDURES Cardioversion: Indication: unstable atrial fibrillation. Pre-procedure time-out not completed due to emergent condition of patient. Patient clinically unstable with hypotension and altered level of consciousness. IV established. O2 administered. Placed on lunchroom monitor and pulse oximeter. Airway equipment present. Cardioversion performed by me. Morphine 2 mg IVP given. Electrical cardioversion using pads. First shock at 200 joules. Post cardioversion rhythm: normal sinus rhythm. No complications. C-Spine Status: Cervical spine cleared by history and physical exam. Patient alert and oriented times three and does not appear intoxicated. No complaint of neck pain. There is no neurological deficit or point tenderness on examination. Full cervical spine range of motion without pain. Critical care performed (120 minutes). Time is exclusive of separately billable procedures. Time includes: direct patient care, patient reassessment, coordination of patient care, interpretation of data (laboratory data, pulse oximetry and chest xrays), review of patient's medical records, medical consultation, family consultation regarding treatment decisions and documentation of patient care. The patient required critical care due to the acute impairment of vital organ systems (cardiovascular) and a high probability of life threatening deterioration. Numerous emergent interventions were required to prevent life threatening deterioration. Call placed to on-call health care provider call placed [phone] to [facility], spoke w/ transfer table operator about patient status, she will attempt to contact [facility] and call back. Consult obtained from vascular surgery. call returned 10:04 Dr. Leija. Patient to be flown to [facility] and taken straight to the OR. Case discussed. Phone consult only. Disposition: Transferred to [facility]. Condition: critical. CLINICAL IMPRESSION Symptomatic abdominal aortic aneurysm with rupture. Chronic atrial fibrillation with uncontrolled rate. Moderate leukocytosis with bandemia. Moderate hyperglycemia. (Electronically signed by Parag Van Dr. 11/12/2016 10:30)
--- NOTE | 2016-11-12 14:39 | ED DISCHARGE INSTRUCTIONS ---
Patient: EDISON PINON General Instructions [facility] VisitID: [id number] [address] [place] [address] 86y, F Registration Date/Time: 11/12/2016 Symptomatic abdominal aortic aneurysm with rupture. Chronic atrial fibrillation with uncontrolled rate. Moderate leukocytosis with bandemia. Moderate hyperglycemia. (Electronically signed by Parag Van Dr. 11/12/2016 10:30)
--- NOTE | 2016-11-12 14:39 | ED DISCHARGE INSTRUCTIONS ---
Patient: EDISON PINON General Instructions [facility] VisitID: [id number] [address] [place] [address] 86y, F Registration Date/Time: 11/12/2016 Symptomatic abdominal aortic aneurysm with rupture. Chronic atrial fibrillation with uncontrolled rate. Moderate leukocytosis with bandemia. Moderate hyperglycemia. (Electronically signed by Parag Van Dr. 11/12/2016 10:30)
--- NOTE | 2016-11-12 14:39 | ED MED RECONCILIATION SUMMARY ---
Patient: EDISON PINON Medication Reconciliation Report [facility] VisitID: [id number] [address] [place] [address] 86y, F Registration Date/Time: 11/12/2016 Weight: 90 kg Height/Length: 64 in. BMI: 34.1 ALLERGIES: Codeine, Darvocet, Ezetimibe, Tape The patient's Home Medications are listed below: THE FOLLOWING MEDICATIONS NEED TO BE RECONCILED: Antidepressant Pradaxa Oral PredniSONE Oral Synthroid Oral TraZODone HCl Oral The source(s) of the original Home Medication information: EMS The following Medications were given to the patient in the Emergency Department: IV NS IV Fluids bolus 0, then 1000 mL/hr, administered: 11/12/2016 6:16:00 AM Diltiazem [IVP] IVP 20 mg, administered: 11/12/2016 6:14:00 AM Zofran [IVP] IVP 4 mg, administered: 11/12/2016 7:00:00 AM IV NS IV Fluids bolus 0, then 1000 mL/hr, administered: 11/12/2016 7:32:00 AM Diltiazem [IV Drip] Drip IV bolus 0, then 5 mg/hr, administered: 11/12/2016 7:40:00 AM Morphine [IVP] IVP 2 mg, administered: 11/12/2016 7:54:00 AM PHENERGAN [IVP] IVP 12.5 mg, administered: 11/12/2016 7:30:00 AM Insulin REG [IVP] IVP 6 unit, administered: 11/12/2016 10:12:00 AM IV NS IV Fluids bolus 0, then 1000 mL/hr, administered: 11/12/2016 9:51:00 AM IV NS IV Fluids bolus 0, then 1000 mL/hr, administered: 11/12/2016 9:52:00 AM IV NS IV Fluids bolus 0, then 1000 mL/hr, administered: 11/12/2016 10:21:00 AM The following Medications were prescribed to the patient: None.
--- NOTE | 2016-11-12 14:39 | ED MED RECONCILIATION SUMMARY ---
Patient: EDISON PINON Medication Reconciliation Report VisitID: [id number] [address] [place] [address] 86y, F Registration Date/Time: 11/12/2016 Weight: 90 kg Height/Length: 64 in. BMI: 34.1 ALLERGIES: Codeine, Darvocet, Ezetimibe, Tape The patient's Home Medications are listed below: THE FOLLOWING MEDICATIONS NEED TO BE RECONCILED: Antidepressant Pradaxa Oral PredniSONE Oral Synthroid Oral TraZODone HCl Oral The source(s) of the original Home Medication information: EMS The following Medications were given to the patient in the Emergency Department: IV NS IV Fluids bolus 0, then 1000 mL/hr, administered: 11/12/2016 6:16:00 AM Diltiazem [IVP] IVP 20 mg, administered: 11/12/2016 6:14:00 AM Zofran [IVP] IVP 4 mg, administered: 11/12/2016 7:00:00 AM IV NS IV Fluids bolus 0, then 1000 mL/hr, administered: 11/12/2016 7:32:00 AM Diltiazem [IV Drip] Drip IV bolus 0, then 5 mg/hr, administered: 11/12/2016 7:40:00 AM Morphine [IVP] IVP 2 mg, administered: 11/12/2016 7:54:00 AM PHENERGAN [IVP] IVP 12.5 mg, administered: 11/12/2016 7:30:00 AM Insulin REG [IVP] IVP 6 unit, administered: 11/12/2016 10:12:00 AM IV NS IV Fluids bolus 0, then 1000 mL/hr, administered: 11/12/2016 9:51:00 AM IV NS IV Fluids bolus 0, then 1000 mL/hr, administered: 11/12/2016 9:52:00 AM IV NS IV Fluids bolus 0, then 1000 mL/hr, administered: 11/12/2016 10:21:00 AM The following Medications were prescribed to the patient: None.
--- NOTE | 2016-11-12 14:39 | ED MAR SUMMARY ---
..... Medication Administration Record [facility] [address] [place] [address] Patient: EDISON PINON Visit ID: [id number] 86y, F Weight: 90.0 kg Height/Length: 64 in BMI: 34.1 ALLERGIES: Codeine, Tape, Darvocet, Ezetimibe Given 06:14 11/12/2016 Preethi Patricia, Medication Administered: DILTIAZEM [IVP], Dose: 20 mg IVP over 1 minute(s), Site: #1. Medication Ordered: Diltiazem IV 20 mg (HIGH ALERT MEDICATION, NOW). Start 06:16 11/12/2016 Preethi Patricia,, Stop 08:00 11/12/2016 Sergio Busch R.N. Medication Administered: IV NS (SALINE), Dose: IV Fluids over 1 hour(s), Rate: 1000 mL/hr, Dispensed: 1000 mL bag, Site: #1 left AC. Medication Ordered: IV NS : initial bolus none -, then 1000 mL/hr for X1 (NOW). Given 07:00 11/12/2016 Preethi Patricia, Medication Administered: ZOFRAN [IVP] (ONDANSETRON HCL), Dose: 4 mg IVP over 1 minute(s), Site: #1 left AC. Medication Ordered: Zofran IV 4 mg (NOW). Given 07:30 11/12/2016 Sergio Busch R.N. Medication Administered: PHENERGAN [IVP] (PROMETHAZINE HCL), Dose: 12.5 mg IVP over 2 minute(s), Site: #2 right AC. Medication Ordered: Phenergan IV 12.5 mg (HIGH ALERT MEDICATION, NOW). Start 07:32 11/12/2016 Preethi Patricia,, Stop 08:05 11/12/2016 Sergio Busch R.N. Medication Administered: IV NS (SALINE), Dose: IV Fluids over 1 hour(s), Rate: 1000 mL/hr, Dispensed: 1000 mL bag, Site: #1 left AC. Medication Ordered: IV NS with Normal Saline 1 Liter: initial bolus 1000 mL (1000 mL/hr), then 1000 mL/hr for X1 (NOW). Start 07:40 11/12/2016 Sergio Busch R.N. Medication Administered: DILTIAZEM [IV DRIP], Dose: Drip IV over 1 hour(s), Rate: 5 mg/hr, Site: #2 right AC. Medication Ordered: Diltiazem Drip IV : 5 mg/hr (HIGH ALERT MEDICATION, NOW, TITRATE). Given 07:54 11/12/2016 Sergio Busch R.N. Medication Administered: MORPHINE [IVP], Dose: 2 mg IVP over 1 minute(s), Site: #3. Medication Ordered: Morphine IV 2 mg (HIGH ALERT MEDICATION, NOW). Start 09:51 11/12/2016 Sergio Busch R.N., Stop 09:55 11/12/2016 Sergio Busch R.N. Medication Administered: IV NS (SALINE), Dose: IV Fluids over 1 hour(s), Rate: 1000 mL/hr, Dispensed: 1000 mL bag, Site: #2 right AC. Medication Ordered: IV NS : initial bolus 1000 mL (1000 mL/hr), then 1000 mL/hr for X2 (NOW). Start 09:52 11/12/2016 Sergio Busch R.N., Stop 09:54 11/12/2016 Sergio Busch R.N. Medication Administered: IV NS (SALINE), Dose: IV Fluids over 1 hour(s), Rate: 1000 mL/hr, Dispensed: 1000 mL bag, Site: #2 right AC. Medication Ordered: IV NS : initial bolus 1000 mL (1000 mL/hr), then 1000 mL/hr for X2 (NOW). Given 10:12 11/12/2016 Sergio Busch R.N. Medication Administered: INSULIN REG [IVP], Dose: 6 unit IVP over 1 minute(s), Site: #2 right AC. Medication Ordered: Insulin Reg IV 6 units (HIGH ALERT MEDICATION, NOW). Start 10:21 11/12/2016 Sergio Busch R.N. Medication Administered: IV NS (SALINE), Dose: IV Fluids over 1 hour(s), Rate: 1000 mL/hr, Dispensed: 1000 mL bag, Site: #2. Medication Ordered: IV NS : initial bolus none -, then 1000 mL/hr for X1 (NOW); Stat.
--- NOTE | 2016-11-12 14:39 | ED MAR SUMMARY ---
..... Medication Administration Record [facility] [address] [place] [address] Patient: EDISON PINON Visit ID: [id number] 86y, F Weight: 90.0 kg Height/Length: 64 in BMI: 34.1 ALLERGIES: Codeine, Tape, Darvocet, Ezetimibe Given 06:14 11/12/2016 Preethi Patricia, Medication Administered: DILTIAZEM [IVP], Dose: 20 mg IVP over 1 minute(s), Site: #1. Medication Ordered: Diltiazem IV 20 mg (HIGH ALERT MEDICATION, NOW). Start 06:16 11/12/2016 Preethi Patricia,, Stop 08:00 11/12/2016 Sergio Busch R.N. Medication Administered: IV NS (SALINE), Dose: IV Fluids over 1 hour(s), Rate: 1000 mL/hr, Dispensed: 1000 mL bag, Site: #1 left AC. Medication Ordered: IV NS : initial bolus none -, then 1000 mL/hr for X1 (NOW). Given 07:00 11/12/2016 Preethi Patricia, Medication Administered: ZOFRAN [IVP] (ONDANSETRON HCL), Dose: 4 mg IVP over 1 minute(s), Site: #1 left AC. Medication Ordered: Zofran IV 4 mg (NOW). Given 07:30 11/12/2016 Sergio Busch R.N. Medication Administered: PHENERGAN [IVP] (PROMETHAZINE HCL), Dose: 12.5 mg IVP over 2 minute(s), Site: #2 right AC. Medication Ordered: Phenergan IV 12.5 mg (HIGH ALERT MEDICATION, NOW). Start 07:32 11/12/2016 Preethi Patricia,, Stop 08:05 11/12/2016 Sergio Busch R.N. Medication Administered: IV NS (SALINE), Dose: IV Fluids over 1 hour(s), Rate: 1000 mL/hr, Dispensed: 1000 mL bag, Site: #1 left AC. Medication Ordered: IV NS with Normal Saline 1 Liter: initial bolus 1000 mL (1000 mL/hr), then 1000 mL/hr for X1 (NOW). Start 07:40 11/12/2016 Sergio Busch R.N. Medication Administered: DILTIAZEM [IV DRIP], Dose: Drip IV over 1 hour(s), Rate: 5 mg/hr, Site: #2 right AC. Medication Ordered: Diltiazem Drip IV : 5 mg/hr (HIGH ALERT MEDICATION, NOW, TITRATE). Given 07:54 11/12/2016 Sergio Busch R.N. Medication Administered: MORPHINE [IVP], Dose: 2 mg IVP over 1 minute(s), Site: #3. Medication Ordered: Morphine IV 2 mg (HIGH ALERT MEDICATION, NOW). Start 09:51 11/12/2016 Sergio Busch R.N., Stop 09:55 11/12/2016 Sergio Busch R.N. Medication Administered: IV NS (SALINE), Dose: IV Fluids over 1 hour(s), Rate: 1000 mL/hr, Dispensed: 1000 mL bag, Site: #2 right AC. Medication Ordered: IV NS : initial bolus 1000 mL (1000 mL/hr), then 1000 mL/hr for X2 (NOW). Start 09:52 11/12/2016 Sergio Busch R.N., Stop 09:54 11/12/2016 Sergio Busch R.N. Medication Administered: IV NS (SALINE), Dose: IV Fluids over 1 hour(s), Rate: 1000 mL/hr, Dispensed: 1000 mL bag, Site: #2 right AC. Medication Ordered: IV NS : initial bolus 1000 mL (1000 mL/hr), then 1000 mL/hr for X2 (NOW). Given 10:12 11/12/2016 Sergio Busch R.N. Medication Administered: INSULIN REG [IVP], Dose: 6 unit IVP over 1 minute(s), Site: #2 right AC. Medication Ordered: Insulin Reg IV 6 units (HIGH ALERT MEDICATION, NOW). Start 10:21 11/12/2016 Sergio Busch R.N. Medication Administered: IV NS (SALINE), Dose: IV Fluids over 1 hour(s), Rate: 1000 mL/hr, Dispensed: 1000 mL bag, Site: #2. Medication Ordered: IV NS : initial bolus none -, then 1000 mL/hr for X1 (NOW); Stat.
== END 2016-11-12 10:37 | disposition short-term general hospital (02) ==
LOC: ED SRH 06:05 → EDBD 06:06 → ED SRH 06:06
DX: I48.2 Chronic atrial fibrillation (principal); Z91.048 Other nonmedicinal substance allergy status; I71.3 Abdominal aortic aneurysm, ruptured; D72.825 Bandemia; R73.9 Hyperglycemia, unspecified; I10 Essential (primary) hypertension; Z86.73 Personal history of transient ischemic attack (TIA), and cerebral infarction without residual deficits; E07.9 Disorder of thyroid, unspecified; Z79.899 Other long term (current) drug therapy; Z88.5 Allergy status to narcotic agent